=== PATIENT | male | born 1990 | race Caucasian/White ===

== ENCOUNTER 2021-06-01 07:01 | Outpatient (REF) | payer BC, SELFPAY ==
[2021-06-01 11:09] LABS: MANUAL DIFF FLAG NO
[2021-06-01 11:26] LABS: Appearance Urine CLEAR; Color Urine YELLOW; Glucose Urine UA NEG (NEG); Leukocyte Esterase Urine NEG (NEG); Nitrite Urine NEG (NEG); PH 5.5 (5.0-8.0); Specific Gravity - Urine >= 1.030 (1.005-1.025); Urine Blood NEG (NEG); Urine Ketones NEG (NEG); Urine Protein NEG (NEG-TRACE)
[2021-06-01 11:29] LABS: Basophils Percent Auto 0.3 % (0-2); Eosinophils Absolute Auto 0.1 X10*3/uL (0.0-0.4); Eosinophils Percent Auto 1.1 % (0-4); Hematocrit 47.9 % (42.0-52.0); Hemoglobin 16.4 g/dl (14.0-18.0); Imm Gran Abs Auto 0.02 X10*3/uL (0.00-0.03); Imm Gran Pct Auto 0.3 % (0.0-0.4); Lymphocytes Absolute Auto 3.2 X10*3/uL (1.2-4.9); Lymphocytes Percent Auto 42.5 % (20-40); Mean Corpuscular HGB Conc 34.2 g/dl (31.0-36.0); Mean Corpuscular Volume 87.7 fL (80.0-98.0); Mean Platelet Volume 9.6 fL (9.4-12.4); Monocytes Absolute Auto 0.6 X10*3/uL (0.1-1.2); Monocytes Percent Auto 8.6 % (2-11); Neutrophils Absolute Auto 3.5 x10*3/uL (2.0-8.3); Neutrophils Percent Auto 47.2 % (45-73); Platelet Count 254 X10*3/uL (160-400); Red Blood Count 5.46 X10*6/uL (4.60-5.80); Red Cell Distribution Width 12.6 % (11.0-16.0); White Blood Count 7.4 X10*3/uL (4.8-10.8)
[2021-06-01 11:40] LABS: Alanine Aminotransferase 34 U/L (0-40); Albumin Level 4.7 g/dL (3.5-5.0); Alkaline Phosphatase 65 U/L (39-117); Anion Gap 14 (12-20); Aspartate Amino Transferase 20 U/L (5-37); Bilirubin Total 2.1 mg/dL (0.0-1.0); Blood Urea Nitrogen 13 mg/dL (9-16); Calcium 9.6 mg/dL (8.4-10.2); Carbon Dioxide 26 mmol/L (22-29); Chloride 105 mmol/L (96-108); Cholesterol 177 mg/dL; Estimated Glomerular Filt Rate > 60; Glucose Fasting 100 mg/dL (60-99); HDL Cholesterol 39 mg/dL; LDL Cholesterol Calculated 122 mg/dl; Potassium 4.5 mmol/L (3.3-5.1); Sodium 140 mmol/L (135-145); Total Protein 7.4 g/dL (6.5-8.0); Triglycerides 81 mg/dL
[2021-06-01 12:02] LABS: TSH reflex Free T4 1.77 uIU/mL (0.32-4.0)
== END 2021-06-01 07:02 | disposition home or self-care (01) ==
LOC: HO.HMGCLDS 07:01
PROVIDERS: Visit Provider Nurse Practitioner Family
DX: Z00.00 Encounter for general adult medical examination without abnormal findings (principal)
CPT/HCPCS: 36415; 80053; 80061; 81003; 84443; 85025

== ENCOUNTER 2021-07-02 06:30 | Outpatient (REF) | payer BC, SELFPAY ==
[2021-07-02 12:01] LABS: Alanine Aminotransferase 40 U/L (0-40); Albumin Level 4.5 g/dL (3.5-5.0); Alkaline Phosphatase 62 U/L (39-117); Aspartate Amino Transferase 23 U/L (5-37); Bilirubin Direct 0.8 mg/dL (0.0-0.5); Bilirubin Total 2.6 mg/dL (0.0-1.0); Total Protein 7.1 g/dL (6.5-8.0)
== END 2021-07-02 06:31 | disposition home or self-care (01) ==
LOC: HO.HMGCLDS 06:30
PROVIDERS: Visit Provider Nurse Practitioner Family
DX: R17 Unspecified jaundice (principal)
CPT/HCPCS: 36415; 80076

== ENCOUNTER 2021-09-24 09:30 | Outpatient (REF) | payer BC, SELFPAY ==
[2021-09-24 14:02] LABS: Gamma Glutamyl Transpeptidase 31 U/L (11-51)
[2021-09-24 14:23] LABS: Ferritin 151 ng/mL (20-250)
[2021-09-25 08:06] LABS: HBS Num1 83.56 mIU/mL (0-7.99); HBc Num1 0.11 S/CO (0.00-0.79); HBsAGNum1 0.21 S/CO (0.00-0.99); HIV AB/AG Nonreactive (Nonreactive); Hepatitis A Antibody IgM 0.17 Index (0-0.79); Hepatitis B Core Antibody Nonreactive (Nonreactive); Hepatitis B Surface Antigen Negative (Negative); ~HepC Num1 0.07 S/CO (0.00-0.79); ~Hepatitis A Antibody IgM Nonreactive (Nonreactive); ~Hepatitis B Surface Antibody REACTIVE (Nonreactive); ~Hepatitis C Antibody Nonreactive (Nonreactive)
[2021-09-28 13:57] LABS: Alpha Fetoprotein 3.7 ng/mL (<6.1)
[2021-09-28 14:53] LABS: Anti Nuclear Antibody Screen NEGATIVE (NEGATIVE)
[2021-09-30 16:07] LABS: Mitochondrial Antibodies NEGATIVE (NEGATIVE)
[2021-09-30 23:47] LABS: Smooth Muscle Antibody <20 U (<20)
== END 2021-09-24 09:31 | disposition home or self-care (01) ==
LOC: HO.HMGCLDS 09:30
PROVIDERS: PCP Nurse Practitioner Family; Visit Provider Nurse Practitioner
DX: Z11.4 Encounter for screening for human immunodeficiency virus [HIV] (principal); R17 Unspecified jaundice
CPT/HCPCS: 36415; 82105; 82728; 82977; 86015; 86038; 86039; 86255; 86256; 86704; 86706; 86709; 86803; 87340; 87389

== ENCOUNTER 2021-10-12 09:48 | Outpatient (REF) | payer BC, SELFPAY ==
--- NOTE | ~2021-10-12 | US_ITS ---
EXAMINATION: US COMPLETE ABDOMEN WITH LIVER ELASTOGRAPHY CLINICAL INFORMATION: Unspecified jaundice. COMPARISON: Abdominal ultrasound done on 11/17/2010. TECHNIQUE: Real-time imaging of the abdominal viscera. Noninvasive ultrasound liver fibrosis assessment is performed using Leisa ElastPQ point quantification shear wave elastography (2D-SWE) with a C5-2 MHz transducer. Multiple elastography samples are obtained. FINDINGS: PANCREAS: Normal. The visualized pancreatic head and body are normal in appearance. The remainder of the pancreas is obscured from visualization by the overlying bowel gas. ABDOMINAL AORTA: The proximal, middle, and distal aortic segments are normal in caliber. INFERIOR VENA CAVA: Visualized portions are normal. LIVER: Normal. The liver demonstrates normal size, contour and echogenicity. No focal lesion or intrahepatic biliary duct dilatation. The right lobe measures 15.6 cm in length. The left lobe measures 9.2 cm in length. Portal flow is towards the liver (hepatopetal). Shear wave liver elastography median stiffness is 1.66 m/s (reference: normal median stiffness is 1.3 m/s or less). IQR/median stiffness to assess sampling precision is 0.04 (reference: good quality data set is IQR/median stiffness of 0.15 or less). GALLBLADDER: Solitary 0.6 cm nonmobile oval-shaped echogenic focus is noted, most consistent with a polyp, unchanged since 11/17/2010. There is another smaller similar appearing focus is also noted, appear new since prior study dated 11/17/2010. The gallbladder is physiologically distended without evidence of stones, wall thickening or pericholecystic fluid. COMMON BILE DUCT: Normal in caliber measuring 0.3 cm in diameter. RIGHT KIDNEY: Mild fullness is present of the renal pelvis. No renal calculi or focal parenchymal lesions. The kidney measures 12.0 cm in maximum dimension. LEFT KIDNEY: Mild fullness is present of the renal pelvis. No renal calculi or focal parenchymal lesions. The kidney measures 12.7 cm in maximum dimension. SPLEEN: Normal. The spleen measures 12.2 cm in maximum dimension. FREE FLUID: None. US/US abdomen comp w elastography IMPRESSION: 1. Subcentimeter gallbladder polyps. The dominant follicle measuring 0.6 cm appear stable since 11/17/2010. 2. Otherwise sonographically unremarkable abdominal ultrasound. 3. Liver elastography: In the absence of other known clinical signs, measurements rule out compensated advanced chronic liver disease. If there are known clinical signs, further testing may be needed for confirmation. REFERENCE: Society of Radiologists in Ultrasound Liver Stiffness Thresholds (2020): LIVER STIFFNESS THRESHOLDS: *Liver Stiffness equal or less than 1.3 m/s: High probability of being normal. *Liver Stiffness less than 1.7 m/s: In the absence of other known clinical signs, rules out compensated advanced chronic liver disease. *Liver Stiffness 1.7-2.1 m/s: Suggestive of compensated advanced chronic liver disease but need further test for confirmation. *Liver Stiffness over 2.1 m/s: Rules in compensated advanced chronic liver disease. *Liver Stiffness over 2.4 m/s: Suggestive of clinically significant portal hypertension. QUALITY OF DATA SET: *IQR/Median value equal or less than 0.15 implies a quality data set. *IQR/Median value over 0.15 implies a poor quality data set. SIGNIFICANT CHANGE FROM PRIOR EXAM: Significant change if liver stiffness measurement is 10% or greater from prior exam. OTHER CONSIDERATIONS: The stage of liver fibrosis may be overestimated in the setting of acute hepatitis, liver inflammation, elevated liver function tests, hepatic vascular congestion, obstructive cholestasis, non-fasting state, and infiltrative diseases such as amyloidosis and lymphoma. In some patients with NAFLD, the liver stiffness thresholds for compensated advanced chronic liver disease may be lower. In causes other than viral hepatitis and NAFLD, liver stiffness thresholds are not well established.
== END 2021-10-12 09:49 | disposition home or self-care (01) ==
LOC: HO.US 09:48
PROVIDERS: PCP Nurse Practitioner Family; Visit Provider Nurse Practitioner
DX: R17 Unspecified jaundice (principal)
CPT/HCPCS: 76705; 76981

== ENCOUNTER → 2022-09-10 14:21 | Outpatient (AMB) | payer BC, SELFPAY ==
--- NOTE | 2022-09-10 14:25 | A.OFFVIS_ITS ---
Intake Vital Signs 09/10/22 14:26 Height 6 ft Weight 207 lb 3.752 oz BMI 28.1 BP 113/72 Blood Pressure Location Lt brachial Position Sitting Pulse 80 Intake Visit Reasons: Follow up GERD Intake Note: Patient presents to in office visit today in follow up of GERD. CC: Patient report LUQ abdominal pain and GERD depending on what he eats. Denies other GI symptoms today. Telephone Service Representative Required: No Accompanied by: Self / Same As Patient Allergies Penicillins [PENICILLINS] Allergy (Unknown, Verified 09/10/22 14:29) UNKNOWN HPI Follow up GERD HPI Details Assessment & Plan (1) LINDSEY (nonalcoholic steatohepatitis): ?Comment: BASELINE Laboratory Tests ?06/01/21 Estimated GFR > 60 Total Bilirubin 2.6 H Direct Bilirubin 0.8 H GGT 31 AST 23 ALT 40 Alkaline Phosphatase 62 ?09/24/21 Alpha Fetoprotein 3.7 LEISA Screen NEGATIVE Anti-Mitochondrial Ab NEGATIVE Anti-Smooth Muscle Ab <20 Hepatitis A IgM Ab Nonreactive Hep Bs Antigen Negative Hep Bs Antibody REACTIVE Hep B Core Total Ab Nonreactive Hepatitis C Ab (EIA) Nonreactive HIV 1&2 Ab/P24 Ag 4thGn Nonreactive ULTRASOUND OF THE ABDOMEN WITH ELASTOGRAPHY? 10/13/21? (F0-F1) ULTRASOUND OF THE ABDOMEN WITH ELASTOGRAPHY? 10/13/21? (F0-F1) Shear wave liver elastography median stiffness is 1.66 m/s (reference: normal median stiffness is 1.3 m/s or less).Liver Stiffness? less than 1.7 m/s:? In the absence of other known clinical signs, rules out compensated advanced chronic liver disease. IMPRESSION: 1. Subcentimeter gallbladder polyps. The dominant follicle measuring 0.6 cm appear stable since 11/17/2010. 2. Otherwise sonographically unremarkable abdominal ultrasound. ? 3. Liver elastography:? In the absence of other known clinical signs, measurements rule out compensated advanced chronic liver disease.? If there are known clinical signs, further testing may be needed for confirmation. ?Code(s): K75.81 - Nonalcoholic steatohepatitis (LINDSEY) ?Plan: I go over the test results and, most likely, the elevated liver enzymes are fatty liver or LINDSEY.? He tells me that his mother has fatty liver and I explained that this is a genetic trait where the body will store fat in the liver and this could interfere with the liver function.? It is important that she control his weight, control his blood sugar and avoid alcohol to try to decrease his chances of developing cirrhosis or liver cancer through his life time.? He is agreeable to seeing me every 6 months for monitoring. He is doing well on the pepcid qhs. The left upper stomach pain is somewhat i mproved, but it has not been long enough for him to know for sure. He has trouble with fatty foods, jigar with fatty hamburger, he will have N/V. This could be a mild pancreatic insufficiency. Could consider HIDA or Creon going forward; but for now watch and wait.? He does have some gallbladder polyps in this could be interfering with the excretion of enzymes from the gallbladder. I instruct him on how to sign out for the patient portal and he can contact me if he has any worsening of the pain or other symptoms.? He is agreeable to six-month follow-up. (2) GERD (gastroesophageal reflux disease): ?Code(s): K21.9 - Gastro-esophageal reflux disease without esophagitis (3) Left upper quadrant abdominal pain: ?Code(s): R10.12 - Left upper quadrant pain (4) Elevated bilirubin: ?Code(s): R17 - Unspecified jaundice No labs for LINDSEY since 05/2021. TODAY'S VISIT He is noting having pain in the LUQ when he eats greasier foods when he is on the run at work. (this is consistent with his past presentation) The famotidine still seems to settle this down well. I will increase dosing to bid so that he can have some to take with him to work. Long education about the fact that the body does not always digest fats well. We discussed the possibility that this is a result of gas trapping any says that this could be since he does seem to feel that greasy food give him more gas. We also briefly discussed the possibility of a digestive enzyme however the multiple time a day dosing could be a barrier for him. He is agreeable to LINDSEY survey. He questions if his GB is a problem, no past hx of gallstones but US will tell. 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 Current occupational exposures/hazards: No Review of Systems Const Denies fatigue, Denies fever(s), Denies night sweats, Denies poor appetite and Denies weight loss ENT Reports Normal hearing present, Denies dental pain, Denies dysphagia, Denies hearing loss, Denies mouth pain, Denies odynophagia, Denies throat swelling, Denies tongue swelling and Reports other (Dentition adequate) Card Reports no additional complaints Resp Reports no additional complaints GI Reports abdominal pain, Denies melena, Denies bloating, Denies hematochezia, Denies constipation, Denies GI cramping, Denies dysphagia, Denies excessive flatus, Denies early satiety, Reports heartburn, Denies diarrhea, Denies nausea, Denies odynophagia, Denies vomiting and Denies hematemesis Skin/Breast Denies pruritus, Denies lesions, Denies rash and Denies jaundice Neuro Reports Normal hearing present and Denies Abnormal speech present Endo Denies fatigue Aller/Immun Denies throat swelling and Denies tongue swelling Physical Exam Vital Signs: Last Vital Signs Pulse 80 09/10/22 14:26 BP 113/72 09/10/22 14:26 BMI result Body Mass Index 28.1 Const General: cooperative, no acute distress, well developed and well groomed Nutritional Appearance: average body habitus and well nourished Orientation/consciousness: oriented to person, oriented to place and oriented to time Limitations: No language barrier HEENT Head: Yes normocephalic and Yes atraumatic Eyes General: appearance normal, both eyes and all related structures Pupils: Equal, round and reactive pupils present Neck Neck: Yes normal visual inspection and Yes no lymphadenopathy Thyroid: Thyroid normal Resp Effort & Inspection: normal respiratory effort and able to speak in complete sentences Auscultation: clear to auscultation bilaterally Cardio Rate: regular rate Rhythm: regular rhythm Heart sounds: Normal, physiologic split S2 sound present Peripheral pulses: radial pulses present and posterior tibial pulses present GI Inspection: No distended and No Abdominal panniculus present Palpation (GI): Soft to palpation, nontender, no guarding, not rigid and No hepatosplenomegaly present Percussion: Yes normal to percussion Auscultation: normal bowel sounds Rectal Exam - Male: Yes deferred Skin General skin exam: no rashes or lesions noted, turgor normal, skin not dry, no jaundice, No spider nevi and no striae Rashes: no rashes Nails: normal Neuro General: oriented to person, oriented to place and oriented to time Cranial nerves: Yes Equal, round and reactive pupils present and Yes Normal hearing present Speech: No Abnormal speech present Extrem General: Yes normal to inspection, No clubbing, No cyanosis and No edema Psych Appearance: grossly normal and well kempt Mental Status: mental status grossly normal Speech and movement: Normal speech and movement present Affect: normal affect Attitude: cooperative Thought process: Normal thought process present and not confabulating Thought content: Normal thought content present Insight: Limited insight present (Psych) Judgement: Limited judgement present (Psych) Assessment & Plan Assessment & Plan (1) LINDSEY (nonalcoholic steatohepatitis): Comment: BASELINE Laboratory Tests 06/01/21 Estimated GFR > 60 Total Bilirubin 2.6 H Direct Bilirubin 0.8 H GGT 31 AST 23 ALT 40 Alkaline Phosphatase 62 09/24/21 Alpha Fetoprotein 3.7 LEISA Screen NEGATIVE Anti-Mitochondrial Ab NEGATIVE Anti-Smooth Muscle Ab <20 Hepatitis A IgM Ab Nonreactive Hep Bs Antigen Negative Hep Bs Antibody REACTIVE Hep B Core Total Ab Nonreactive Hepatitis C Ab (EIA) Nonreactive HIV 1&2 Ab/P24 Ag 4thGn Nonreactive ULTRASOUND OF THE ABDOMEN WITH ELASTOGRAPHY 10/13/21 (F0-F1) ULTRASOUND OF THE ABDOMEN WITH ELASTOGRAPHY 10/13/21 (F0-F1) Shear wave liver elastography median stiffness is 1.66 m/s (reference: normal median stiffness is 1.3 m/s or less).Liver Stiffness? less than 1.7 m/s:? In the absence of other known clinical signs, rules out compensated advanced chronic liver disease. IMPRESSION: 1. Subcentimeter gallbladder polyps. The dominant follicle measuring 0.6 cm appear stable since 11/17/2010. 2. Otherwise sonographically unremarkable abdominal ultrasound. ? 3. Liver elastography:? In the absence of other known clinical signs, measurements rule out compensated advanced chronic liver disease.? If there are known clinical signs, further testing may be needed for confirmation. Code(s): K75.81 - Nonalcoholic steatohepatitis (LINDSEY) Plan: He is noting having pain in the LUQ when he eats greasier foods when he is on the run at work. (this is consistent with his past presentation) The famotidine still seems to settle this down well. I will increase dosing to bid so that he can have some to take with him to work. Long education about the fact that the body does not always digest fats well. We discussed the possibility that this is a result of gas trapping any says that this could be since he does seem to feel that greasy food give him more gas. We also briefly discussed the possibility of a digestive enzyme however the multiple time a day dosing could be a barrier for him. He is agreeable to LINDSEY survey. He questions if his GB is a problem, no past hx of gallstones but US will tell. I will see him after th e US> ROV after US> (2) GERD (gastroesophageal reflux disease): Code(s): K21.9 - Gastro-esophageal reflux disease without esophagitis (3) Elevated bilirubin: Code(s): R17 - Unspecified jaundice (4) Left upper quadrant abdominal pain: Code(s): R10.12 - Left upper quadrant pain Orders: Orders Alpha Fetoprotein Today K75.81 - Nonalcoholic steatohepatitis (LINDSEY) Comprehensive Met. Panel Today K75.81 - Nonalcoholic steatohepatitis (LINDSEY) Complete Blood Count Auto Diff Today K75.81 - Nonalcoholic steatohepatitis (LINDSEY) US abdomen comp w elastography Today K75.81 - Nonalcoholic steatohepatitis (LINDSEY) Medications: Changed From famotidine 40 mg PO BEDTIME 30 tabs 0RF K21.9 - Gastro-esophageal reflux disease without esophagitis To famotidine 40 mg PO BID 60 tabs 6RF K21.9 - Gastro-esophageal reflux disease without esophagitis Coding Level of Care Code Est Pt Level 3 (63514) Diagnoses LINDSEY (nonalcoholic steatohepatitis) K75.81 GERD (gastroesophageal reflux disease) K21.9 Elevated bilirubin R17 Left upper quadrant abdominal pain R10.12
[2022-09-10 14:26] VITALS: BP 113/72; PULSE 80; BMI 28.1
== END ==
PROVIDERS: PCP Nurse Practitioner Family; Visit Provider Nurse Practitioner
DX: K75.81 Nonalcoholic steatohepatitis (NASH) (principal); K21.9 Gastro-esophageal reflux disease without esophagitis; R10.12 Left upper quadrant pain; R17 Unspecified jaundice
CPT/HCPCS: 99213

== ENCOUNTER → 2022-09-10 14:21 | Outpatient (BNVA) | payer BC, SELFPAY | PROVIDERS: PCP Nurse Practitioner Family; Visit Provider Nurse Practitioner ==

== ENCOUNTER 2022-09-10 15:00 | Outpatient (REF) | payer BC, SELFPAY ==
[2022-09-10 16:15] LABS: MANUAL DIFF FLAG NO
[2022-09-10 16:30] LABS: Basophils Percent Auto 0.2 % (0-2); Eosinophils Absolute Auto 0.1 X10*3/uL (0.0-0.4); Eosinophils Percent Auto 0.8 % (0-4); Hematocrit 44.2 % (42.0-52.0); Hemoglobin 15.1 g/dl (14.0-18.0); Imm Gran Abs Auto 0.02 X10*3/uL (0.00-0.03); Imm Gran Pct Auto 0.2 % (0.0-0.4); Lymphocytes Percent Auto 35.4 % (20-40); Mean Corpuscular HGB Conc 34.2 g/dl (31.0-36.0); Mean Corpuscular Hemoglobin 29.5 pg (27.0-33.0); Mean Corpuscular Volume 86.3 fL (80.0-98.0); Mean Platelet Volume 9.1 fL (9.4-12.4); Monocytes Absolute Auto 0.7 X10*3/uL (0.1-1.2); Neutrophils Absolute Auto 4.6 x10*3/uL (2.0-8.3); Neutrophils Percent Auto 55.4 % (45-73); Platelet Count 258 X10*3/uL (160-400); Red Blood Count 5.12 X10*6/uL (4.60-5.80); Red Cell Distribution Width 11.9 % (11.0-16.0); White Blood Count 8.4 X10*3/uL (4.8-10.8)
[2022-09-10 17:17] LABS: Alanine Aminotransferase 31 U/L (0-40); Albumin Level 4.6 g/dL (3.5-5.0); Alkaline Phosphatase 55 U/L (39-117); Anion Gap 14 (12-20); Aspartate Amino Transferase 22 U/L (5-37); Bilirubin Total 2.9 mg/dL (0.0-1.0); Blood Urea Nitrogen 15 mg/dL (9-16); Carbon Dioxide 30 mmol/L (22-29); Chloride 101 mmol/L (96-108); Estimated Glomerular Filt Rate > 60; Glucose Random 75 mg/dL (60-115); Potassium 3.9 mmol/L (3.3-5.1); Sodium 141 mmol/L (135-145); Total Protein 7.6 g/dL (6.5-8.0)
[2022-09-14 13:39] LABS: Alpha Fetoprotein 2.8 ng/mL (<6.1)
== END 2022-09-10 15:01 | disposition home or self-care (01) ==
LOC: HO.HMGCLDS 15:00
PROVIDERS: PCP Nurse Practitioner Family; Visit Provider Nurse Practitioner
DX: K75.81 Nonalcoholic steatohepatitis (NASH) (principal)
CPT/HCPCS: 36415; 80053; 82105; 85025

== ENCOUNTER 2022-10-07 09:00 | Outpatient (REF) | payer BC, SELFPAY ==
--- NOTE | ~2022-10-07 | US_ITS ---
EXAMINATION: US COMPLETE ABDOMEN WITH LIVER ELASTOGRAPHY CLINICAL INFORMATION: Nonalcoholic steatohepatitis. COMPARISON: Abdominal ultrasound dated 10/12/2021. TECHNIQUE: Real-time imaging of the abdominal viscera. Noninvasive ultrasound liver fibrosis assessment is performed using Leisa ElastPQ point quantification shear wave elastography (2D-SWE) with a C5-2 MHz transducer. Multiple elastography samples are obtained. FINDINGS: PANCREAS: Normal. The visualized pancreatic head and body are normal in appearance. The remainder of the pancreas is obscured from visualization by the overlying bowel gas. ABDOMINAL AORTA: Largely obscured by overlapping bowel gas. INFERIOR VENA CAVA: Visualized portions are normal. LIVER: The liver demonstrates normal size, contour and is generally increased echogenicity. No focal lesion or intrahepatic biliary duct dilatation. The right lobe measures 13.9 cm in length. The left lobe measures 10.6 cm in length. Portal flow is towards the liver (hepatopetal). Shear wave liver elastography median stiffness is 1.6 m/s (reference: normal median stiffness is 1.3 m/s or less). IQR/median stiffness to assess sampling precision is 0.24 (reference: good quality data set is IQR/median stiffness of 0.15 or less). GALLBLADDER: There are tiny polyps, likely cholesterol polyps. The largest of these measure approximately 2 mm. The gallbladder is physiologically distended without evidence of stones, sludge, polyps, wall thickening or pericholecystic fluid. COMMON BILE DUCT: Normal in caliber measuring 0.2 cm in diameter. RIGHT KIDNEY: Normal. No hydronephrosis. No renal calculi or focal parenchymal lesions. The kidney measures 10.7 cm in maximum dimension. LEFT KIDNEY: Normal. No hydronephrosis. No renal calculi or focal parenchymal lesions. The kidney measures 12.2 cm in maximum dimension. SPLEEN: Normal. The spleen measures 11.4 cm in maximum dimension. FREE FLUID: None. US/US abdomen comp w elastography IMPRESSION: 1. There is generalized increase in hepatic echotexture, consistent with fatty infiltration or hepatocellular disease. Please correlate clinically. No focal hepatic mass or intrahepatic biliary dilatation is seen. 2. Liver elastography: Although measurements appear to rule out compensated advanced chronic liver disease, there is statistical variability of the sampling which decreases accuracy. 3. Tiny gallbladder polyps are incidentally noted, likely cholesterol polyps. REFERENCE: Society of Radiologists in Ultrasound Liver Stiffness Thresholds (2020): LIVER STIFFNESS THRESHOLDS: *Liver Stiffness equal or less than 1.3 m/s: High probability of being normal. *Liver Stiffness less than 1.7 m/s: In the absence of other known clinical signs, rules out compensated advanced chronic liver disease. *Liver Stiffness 1.7-2.1 m/s: Suggestive of compensated advanced chronic liver disease but need further test for confirmation. *Liver Stiffness over 2.1 m/s: Rules in compensated advanced chronic liver disease. *Liver Stiffness over 2.4 m/s: Suggestive of clinically significant portal hypertension. QUALITY OF DATA SET: *IQR/Median value equal or less than 0.15 implies a quality data set. *IQR/Median value over 0.15 implies a poor quality data set. SIGNIFICANT CHANGE FROM PRIOR EXAM: Significant change if liver stiffness measurement is 10% or greater from prior exam. OTHER CONSIDERATIONS: The stage of liver fibrosis may be overestimated in the setting of acute hepatitis, liver inflammation, elevated liver function tests, hepatic vascular congestion, obstructive cholestasis, non-fasting state, and infiltrative diseases such as amyloidosis and lymphoma. In some patients with NAFLD, the liver stiffness thresholds for compensated advanced chronic liver disease may be lower. In causes other than viral hepatitis and NAFLD, liver stiffness thresholds are not well established.
== END 2022-10-07 09:01 | disposition home or self-care (01) ==
LOC: HO.US 09:00
PROVIDERS: PCP Nurse Practitioner Family; Visit Provider Nurse Practitioner
DX: K75.81 Nonalcoholic steatohepatitis (NASH) (principal)
CPT/HCPCS: 76705; 76981

== ENCOUNTER 2022-12-21 14:14 | Outpatient (AMB) | payer BC, SELFPAY ==
--- NOTE | 2022-12-21 14:15 | A.OFFVIS_ITS ---
Intake Vital Signs 12/21/22 14:17 Height 6 ft Weight 207 lb 3.752 oz BMI 28.1 BP 125/68 Blood Pressure Location Lt brachial Position Sitting Pulse 79 Intake Visit Reasons: follow up after ultra sound Intake Note: Edwin presents in the office as a follow up US. CC: Pains in his left side and here for results the the US. He has the pains every day so he is not sure if it is maybe his gall bladder. Allergies Penicillins [PENICILLINS] Allergy (Unknown, Verified 12/21/22 14:17) UNKNOWN HPI follow up after ultra sound HPI Details Assessment & Plan (1) LINDSEY (nonalcoholic steatohepatitis): Comment: BASELINE Laboratory Tests 06/01/21 Estimated GFR > 60 Total Bilirubin 2.6 H Direct Bilirubin 0.8 H GGT 31 AST 23 ALT 40 Alkaline Phosphatase 62 09/24/21 Alpha Fetoprotein 3.7 LEISA Screen NEGATIVE Anti-Mitochondrial Ab NEGATIVE Anti-Smooth Muscle Ab <20 Hepatitis A IgM Ab Nonreactive Hep Bs Antigen Negative Hep Bs Antibody REACTIVE Hep B Core Total Ab Nonreactive Hepatitis C Ab (EIA) Nonreactive HIV 1&2 Ab/P24 Ag 4thGn Nonreactive ULTRASOUND OF THE ABDOMEN WITH ELASTOGRAPHY 10/13/21 (F0-F1) ULTRASOUND OF THE ABDOMEN WITH ELASTOGRAPHY 10/13/21 (F0-F1) Shear wave liver elastography median stiffness is 1.66 m/s (reference: normal median stiffness is 1.3 m/s or less).Liver Stiffness? less than 1.7 m/s:? In the absence of other known clinical signs, rules out compensated advanced chronic liver disease. IMPRESSION: 1. Subcentimeter gallbladder polyps. The dominant follicle measuring 0.6 cm appear stable since 11/17/2010. 2. Otherwise sonographically unremarkabl e abdominal ultrasound. ? 3. Liver elastography:? In the absence o f other known clinical signs, measurements rule out compensated advanced chronic liver disease.? If there are known clinical signs, further testing may be needed for confirmation. Code(s): K75.81 - Nonalcoholic steatohepatitis (LINDSEY) Plan: He is noting having pain in the LUQ when he eats greasier foods when he is on the run at work. (this is consistent with his past presentation) The famotidine still seems to settle this down well. I will increase dosing to bid so that he can have some to take with him to work. Long education about the fact that the body does not always digest fats well. We discussed the possibility that this is a result of gas trapping any says that this could be since he does seem to feel that greasy food give him more gas. We also briefly discussed the possibility of a digestive enzyme however the multiple time a day dosing could be a barrier for him. He is agreeable to LINDSEY survey. He questions if his GB is a problem, no past hx of gallstones but US will tell. I will see him after th e US> ROV after US> (2) GERD (gastroesophageal reflux diseas e): Code(s): K21.9 - Gastro-esophageal reflux disease without esophagitis (3) Elevated bilirubin: Code(s): R17 - Unspecified jaundice (4) Left upper quadrant abdominal pain: Code(s): R10.12 - Left upper quadrant pain Orders: Orders Alpha Fetoprotein Today K75.81 - Nonalcoho lic steatohepatiti s (LINDSEY) Comprehensive Met. Panel Today K75.81 - Nonalcoho lic steatohepatiti s (LINDSEY) Complete Blood Cou nt Auto Diff Today K75.81 - Nonalcoho lic steatohepatiti s (LINDSEY) US abdomen comp w elastography Today K75.81 - Nonalcoho lic steatohepatiti s (LINDSEY) Medications: Changed From famotidine 40 mg PO BEDTIME 30 tabs 0RF K21.9 - Gastro-eso phageal reflux dis ease without esoph agitis To famotidine 40 mg PO BID 60 t abs 6RF K21.9 - Gastro-eso phageal reflux dis ease without esoph agitis LABS: Laboratory Tests 07/02/21 09/10/22 09/10/22 06:37 15:21 15:21 WBC 8.4 Hgb 15.1 Hct 44.2 Plt Count 258 Estimated GFR > 60 Total Bilirubin 2.9 H Direct Bilirubin 0.8 H AST 22 ALT 31 Alkaline Phosphata se 55 Alpha Fetoprotein 2.8 ULTRASOUND OF THE ABDOMEN WITH ELASTOGRAPHY (F-0) FINDINGS: PANCREAS: Normal. The visualized pancreatic head and body are normal in appearance. The remainder of the pancreas is obscured from visualization by the overlying bowel gas. ABDOMINAL AORTA: Largely obscured by overlapping bowel gas. INFERIOR VENA CAVA: Visualized portions are normal. LIVER: The liver demonstrates normal size, contour and is generally increased echogenicity. No focal lesion or intrahepatic biliary duct dilatation. The right lobe measures 13.9 cm in length. The left lobe measures 10.6 cm in length. Portal flow is towards the liver (hepatopetal). Shear wave liver elastography median stiffness is 1.6 m/s (reference: normal median stiffness is 1.3 m/s or less). IQR/median stiffness to assess sampling precision is 0.24 (reference: good quality data set is IQR/median stiffness of 0.15 or less). GALLBLADDER: There are tiny polyps, likely cholesterol polyps. The largest of these measure approximately 2 mm. The gallbladder is physiologically distended without evidence of stones, sludge, polyps, wall thickening or pericholecystic fluid. COMMON BILE DUCT: Normal in caliber measuring 0.2 cm in diameter. RIGHT KIDNEY: Normal. No hydronephrosis. No renal calculi or focal parenchymal lesions. The kidney measures 10.7 cm in maximum dimension. LEFT KIDNEY: Normal. No hydronephrosis. No renal calculi or focal parenchymal lesions. The kidney measures 12.2 cm in maximum dimension. SPLEEN: Normal. The spleen measures 11.4 cm in maximum dimension. FREE FLUID: None. US/US abdomen comp w elastography IMPRESSION: 1. There is generalized increase in hepa tic echotexture, consistent with fatty infiltration or hepatocellular disease. Please correlate clinically. No focal hepatic mass or intrahepatic biliary dilatation is seen. 2. Liver elastography: Although measure ments appear to rule out compensated advanced chronic liver disease, there is statistical variability of the sampling which decreases accuracy. 3. Tiny gallbladder polyps are incidenta lly noted, likely cholesterol polyps. TODAY'S VISIT He still has pain in the LUQ in a very discreet spot, always sore and he has to put a pillow over it to sleep. This is greatly worse with eating greasy foods but the nausea and increase in the pain and the nausea will happen a few hours later after eating. When he vomits there is only grease and no food. The pain at times will wrap around to the back on the left side. US does not show gallstones. It does show a lot of gas and much of the pancreas is obscured. Next step, HIDA scan, pancreatic enzymes and try simethicone. Could be EPI or atypical manifestation of GB problems. He continues on famotidine. ROV after HIDA scan. 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 Current occupational exposures/hazards: No Review of Systems Const Denies fatigue, Denies fever(s), Denies night sweats, Denies poor appetite and Denies weight loss ENT Reports Normal hearing present, Denies dental pain, Denies dysphagia, Denies hearing loss, Denies mouth pain, Denies odynophagia, Denies throat swelling, Denies tongue swelling and Reports other (Dentition adequate) Card Reports no additional complaints Resp Reports no additional complaints GI Reports abdominal pain, Denies melena, Reports bloating, Denies hematochezia, Denies constipation, Denies GI cramping, Denies dysphagia, Denies excessive flatus, Denies early satiety, Denies heartburn, Denies diarrhea, Reports nausea, Denies odynophagia, Reports vomiting and Denies hematemesis Musc Reports back pain Skin/Breast Denies pruritus, Denies lesions, Denies rash and Denies jaundice Neuro Reports Normal hearing present and Denies Abnormal speech present Endo Denies fatigue Aller/Immun Denies throat swelling and Denies tongue swelling Physical Exam Vital Signs: Last Vital Signs Pulse 79 12/21/22 14:17 BP 125/68 12/21/22 14:17 BMI result Body Mass Index 28.1 Const General: cooperative, no acute distress, well developed and well groomed Nutritional Appearance: average body habitus and well nourished Orientation/consciousness: oriented to person, oriented to place and oriented to time Limitations: No language barrier HEENT Head: Yes normocephalic and Yes atraumatic Eyes General: appearance normal, both eyes and all related structures Pupils: Equal, round and reactive pupils present Neck Neck: Yes normal visual inspection and Yes no lymphadenopathy Thyroid: Thyroid normal Resp Effort & Inspection: normal respiratory effort and able to speak in complete sentences Auscultation: clear to auscultation bilaterally Cardio Rate: regular rate Rhythm: regular rhythm Heart sounds: Normal, physiologic split S2 sound present Peripheral pulses: radial pulses present and posterior tibial pulses present GI Inspection: No distended and No Abdominal panniculus present Palpation (GI): Soft to palpation, Tenderness to palpation present (GI) in the LUQ, no guarding, not rigid and No hepatosplenomegaly present Percussion: Yes normal to percussion Auscultation: normal bowel sounds Rectal Exam - Male: Yes deferred Skin General skin exam: no rashes or lesions noted, turgor normal, skin not dry, no jaundice, No spider nevi and no striae Rashes: no rashes Nails: normal Neuro General: oriented to person, oriented to place and oriented to time Cranial nerves: Yes Equal, round and reactive pupils present and Yes Normal hearing present Speech: No Abnormal speech present Extrem General: Yes normal to inspection, No clubbing, No cyanosis and No edema Psych Appearance: grossly normal and well kempt Mental Status: mental status grossly normal Speech and movement: Normal speech and movement present Affect: normal affect Attitude: cooperative Thought process: Normal thought process present and not confabulating Thought content: Normal thought content present Insight: Fair insight present (Psych) Judgement: Fair judgement present (Psych) Assessment & Plan Assessment & Plan (1) Left upper quadrant abdominal pain: Code(s): R10.12 - Left upper quadrant pain (2) Elevated bilirubin: Code(s): R17 - Unspecified jaundice Plan He still has pain in the LUQ in a very discreet spot, always sore and he has to put a pillow over it to sleep. This is greatly worse with eating greasy foods but the nausea and increase in the pain and the nausea will happen a few hours later after eating. When he vomits there is only grease and no food. The pain at times will wrap around to the back on the left side. US does not show gallstones. It does show a lot of gas and much of the pancreas is obscured. Next step, HIDA scan, pancreatic enzymes and try simethicone. Could be EPI or atypical manifestation of GB problems. He continues on famotidine. ROV after HIDA scan. Orders: Orders NM hepatobiliary w pharm 12/21/22 R10.12 - Left upper quadrant pain, R17 - Unspecified jaundice Amylase 12/21/22 R10.12 - Left upper quadrant pain, R17 - Unspecified jaundice Lipase 12/21/22 R10.12 - Left upper quadrant pain, R17 - Unspecified jaundice Medications: New simethicone after meals 180 mg PO QID 120 caps 3RF 30 days Coding Level of Care Code Est Pt Level 3 (75071) Diagnoses Left upper quadrant abdominal pain R10.12 Elevated bilirubin R17
[2022-12-21 14:17] VITALS: BP 125/68; PULSE 79; BMI 28.1
== END 2022-12-21 15:38 | disposition home or self-care (01) ==
PROVIDERS: PCP Nurse Practitioner Family; Visit Provider Nurse Practitioner
DX: R10.12 Left upper quadrant pain (principal); R17 Unspecified jaundice
CPT/HCPCS: 99213

== ENCOUNTER → 2022-12-21 14:14 | Outpatient (BNVA) | payer BC, SELFPAY | PROVIDERS: PCP Nurse Practitioner Family; Visit Provider Nurse Practitioner ==

== ENCOUNTER 2022-12-21 15:09 | Outpatient (REF) | payer BC, SELFPAY ==
[2022-12-21 16:31] LABS: Amylase 56 U/L (28-100); Lipase 23 U/L (8-78)
== END 2022-12-21 15:10 | disposition home or self-care (01) ==
LOC: HO.HMGCLDS 15:09
PROVIDERS: PCP Nurse Practitioner Family; Visit Provider Nurse Practitioner
DX: R10.12 Left upper quadrant pain (principal); R17 Unspecified jaundice
CPT/HCPCS: 36415; 82150; 83690

== ENCOUNTER → 2023-01-10 07:44 | Outpatient (REF) | payer BC, SELFPAY ==
--- NOTE | ~2023-01-10 | NM_ITS ---
EXAMINATION: NM BILIARY TRACT CLINICAL INFORMATION: Upper quadrant pain with increased bilirubin. COMPARISON: Ultrasound abdomen 10/06/2022. TECHNIQUE: Following intravenous administration of 5 mCi of 90 9M technetium mebrofenin, imaging over the right upper quadrant was obtained up to 60 minutes. At 60 minutes 1.8 mcg of CCK was injected and further imaging was obtained up to 30 minutes. FINDINGS: There is normal hepatic uptake without any focal defects. The gallbladder is visualized by 9 minutes. CBD is visualized by 15 minutes. Small bowel is visualized by 17 minutes. Post-CCK gallbladder ejection fraction at 30 minutes is 45%. NM/NM hepatobiliary w pharm IMPRESSION: Normal hepatic uptake. Patent CBD and cystic duct. Post-CCK gallbladder ejection fraction is 45% at 30 minutes and is normal
== END ==
LOC: HO.NUCMED 07:44
PROVIDERS: PCP Nurse Practitioner Family; Visit Provider Nurse Practitioner
DX: R10.12 Left upper quadrant pain (principal); R17 Unspecified jaundice
CPT/HCPCS: 78227; A9537; J2805

== ENCOUNTER 2023-02-01 16:06 | Outpatient (AMB) | payer BC, SELFPAY ==
--- NOTE | 2023-02-01 16:07 | A.OFFVIS_ITS ---
Intake Vital Signs 02/01/23 16:08 Height 6 ft Weight 211 lb 10.3 oz BMI 28.7 BP 121/67 Blood Pressure Location Lt brachial Position Sitting Pulse 88 Intake Visit Reasons: Follow up Hida scan Intake Note: Patient returns to in office visit today in follow up of HIDA scan. CC: Patient reports he has been eating better. Still has abdominal pain occasional but he has been avoiding greasy foods and this seems to help. Concession Stand Attendant Required: No Allergies Penicillins [PENICILLINS] Allergy (Unknown, Verified 02/01/23 16:10) UNKNOWN HPI Follow up Hida scan HPI Details Assessment & Plan (1) Left upper quadrant abdominal pain: Code(s): R10.12 - Left upper quadrant pain (2) Elevated bilirubin: Code(s): R17 - Unspecified jaundice Plan He still has pain in the LUQ in a very discreet spot, always sore and he has to put a pillow over it to sleep. This is greatly worse with eating greasy foods but the nausea and increase in the pain and the nausea will happen a few hours later after eating. When he vomits there is only grease and no food. The pain at times will wrap around to the back on the left side. US does not show gallstones. It does show a lot of gas and much of the pancreas is obscured. Next step, HIDA scan, pancreatic enzymes and try simethicone. Could be EPI or atypical manifestation of GB problems. He continues on famotidine. ROV after HIDA scan. Orders: Orders NM hepatobiliary w pharm 12/21/22 R10.12 - Left uppe r quadrant pain, R 17 - Unspecified j aundice Amylase 12/21/22 R10.12 - Left uppe r quadrant pain, R 17 - Unspecified j aundice Lipase 12/21/22 R10.12 - Left uppe r quadrant pain, R 17 - Unspecified j aundice Medications: New simethicone aft er meals 180 mg PO QID 120 caps 3RF 30 days LABS: Laboratory Tests 12/21/22 15:12 Amylase 56 Lipase 23 HIDA SCAN 01/10/23 IMPRESSION: Normal hepatic uptake. Patent CBD and cystic duct. Post-CCK gallbladder ejection fraction is 45% at 30 minutes and is normal TODAY'S VISIT He never tried the simethicone, but when I explain it he is willing when he has the pain. For now he is just relieved that there is nothing serious wrong. We discussed other options for management going forward such is Creon but for now he is going to try avoiding foods that bother him including greasy foods and the Little Fina snacks that seem to set him off. ROV 3 mos. 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 Current occupational exposures/hazards: No Review of Systems Const Denies fatigue, Denies fever(s), Denies night sweats, Denies poor appetite and Denies weight loss ENT Reports Normal hearing present, Denies dental pain, Denies dysphagia, Denies hearing loss, Denies mouth pain, Denies odynophagia, Denies throat swelling, Denies tongue swelling and Reports other (Dentition adequate) Card Reports no additional complaints Resp Reports no additional complaints GI Reports abdominal pain, Denies melena, Reports bloating, Denies hematochezia, Denies constipation, Denies GI cramping, Denies dysphagia, Denies excessive flatus, Denies early satiety, Reports heartburn, Denies diarrhea, Denies nausea, Denies odynophagia, Denies vomiting and Denies hematemesis Skin/Breast Denies pruritus, Denies lesions, Denies rash and Denies jaundice Neuro Reports Normal hearing present and Denies Abnormal speech present Endo Denies fatigue Aller/Immun Denies throat swelling and Denies tongue swelling Physical Exam Vital Signs: Last Vital Signs Pulse 88 02/01/23 16:08 BP 121/67 02/01/23 16:08 BMI result Body Mass Index 28.7 Const General: cooperative, no acute distress, well developed and well groomed Nutritional Appearance: average body habitus and well nourished Orientation/consciousness: oriented to person, oriented to place and oriented to time Limitations: No language barrier HEENT Head: Yes normocephalic and Yes atraumatic Eyes General: appearance normal, both eyes and all related structures Pupils: Equal, round and reactive pupils present Neck Neck: Yes normal visual inspection and Yes no lymphadenopathy Thyroid: Thyroid normal Resp Effort & Inspection: normal respiratory effort and able to speak in complete sentences Auscultation: clear to auscultation bilaterally Cardio Rate: regular rate Rhythm: regular rhythm Heart sounds: Normal, physiologic split S2 sound present Peripheral pulses: radial pulses present and posterior tibial pulses present GI Inspection: No distended and No Abdominal panniculus present Palpation (GI): Soft to palpation, nontender, no guarding, not rigid and No hepatosplenomegaly present Percussion: Yes normal to percussion Auscultation: normal bowel sounds Rectal Exam - Male: Yes deferred Skin General skin exam: no rashes or lesions noted, turgor normal, skin not dry, no jaundice, No spider nevi and no striae Rashes: no rashes Nails: normal Neuro General: oriented to person, oriented to place and oriented to time Cranial nerves: Yes Equal, round and reactive pupils present and Yes Normal hearing present Speech: No Abnormal speech present Extrem General: Yes normal to inspection, No clubbing, No cyanosis and No edema Psych Appearance: grossly normal and well kempt Mental Status: mental status grossly normal Speech and movement: Normal speech and movement present Affect: normal affect Attitude: cooperative Thought process: Normal thought process present and not confabulating Thought content: Normal thought content present Insight: Fair insight present (Psych) Judgement: Fair judgement present (Psych) Results Reviewed Results Reviewed: Laboratory Tests 12/21/22 15:12 Amylase 56 Lipase 23 Laboratory Tests 09/24/21 09/10/22 09/10/22 09:35 15:21 15:21 Total Bilirubin 2.9 H GGT 31 AST 22 ALT 31 Alkaline Phosphatase 55 HIDA SCAN 01/10/23 IMPRESSION: Normal hepatic uptake. Patent CBD and cystic duct. Post-CCK gallbladder ejection fraction is 45% at 30 minutes and is normal Assessment & Plan Assessment & Plan (1) Left upper quadrant abdominal pain: Code(s): R10.12 - Left upper quadrant pain (2) GERD (gastroesophageal reflux disease): Code(s): K21.9 - Gastro-esophageal reflux disease without esophagitis (3) Elevated bilirubin: Code(s): R17 - Unspecified jaundice (4) LINDSEY (nonalcoholic steatohepatitis): Comment: BASELINE Laboratory Tests NORMALIZED AND WITH A NON ELEVATED GGT SHOULD BE FOLLOWED BY THE PRIMARY CARE PROVIDER 06/01/21 Estimated GFR > 60 Total Bilirubin 2.6 H Direct Bilirubin 0.8 H GGT 31 AST 23 ALT 40 Alkaline Phosphatase 62 09/24/21 Alpha Fetoprotein 3.7 LEISA Screen NEGATIVE Anti-Mitochondrial Ab NEGATIVE Anti-Smooth Muscle Ab <20 Hepatitis A IgM Ab Nonreactive Hep Bs Antigen Negative Hep Bs Antibody REACTIVE Hep B Core Total Ab Nonreactive Hepatitis C Ab (EIA) Nonreactive HIV 1&2 Ab/P24 Ag 4thGn Nonreactive ULTRASOUND OF THE ABDOMEN WITH ELASTOGRAPHY 10/13/21 (F0-F1) THE CURRENT LABS 09/24/2206/ [id number]:3515:[id number]:21 Total Bilirubin 2.9 H GGT 31 AST 22 ALT 31 Alkaline Phosphatase 55 ULTRASOUND OF THE ABDOMEN WITH ELASTOGRAPHY 10/13/21 (F0-F1) Shear wave liver elastography median stiffness is 1.66 m/s (reference: normal median stiffness is 1.3 m/s or less).Liver Stiffness? less than 1.7 m/s:? In the absence of other known clinical signs, rules out compensated advanced chronic liver disease. IMPRESSION: 1. Subcentimeter gallbladder polyps. The dominant follicle measuring 0.6 cm appear stable since 11/17/2010. 2. Otherwise sonographically unremarkable abdominal ultrasound. ? 3. Liver elastography:? In the absence of other known clinical signs, measurements rule out compensated advanced chronic liver disease.? If there are known clinical signs, further testing may be needed for confirmation. Code(s): K75.81 - Nonalcoholic steatohepatitis (LINDSEY) Plan He never tried the simethicone, but when I explain it he is willing when he has the pain. For now he is just relieved that there is nothing serious wrong. We discussed other options for management going forward such is Creon but for now he is going to try avoiding foods that bother him including greasy foods and the Little [employer]ina snacks that seem to set him off. HE CONTINUES ON HIS FAMOTIDINE WITH GOOD CONTROL OF HIS GERD. ROV 3 mos. Coding Level of Care Code Est Pt Level 3 (79747) Diagnoses Left upper quadrant abdominal pain R10.12 GERD (gastroesophageal reflux disease) K21.9 Elevated bilirubin R17 LINDSEY (nonalcoholic steatohepatitis) K75.81
[2023-02-01 16:08] VITALS: BP 121/67; PULSE 88; BMI 28.7
== END 2023-02-01 16:29 | disposition home or self-care (01) ==
PROVIDERS: PCP Nurse Practitioner Family; Visit Provider Nurse Practitioner
DX: R10.12 Left upper quadrant pain (principal); K21.9 Gastro-esophageal reflux disease without esophagitis; K75.81 Nonalcoholic steatohepatitis (NASH)
CPT/HCPCS: 99213

== ENCOUNTER → 2023-02-01 16:06 | Outpatient (BNVA) | payer BC, SELFPAY | PROVIDERS: PCP Nurse Practitioner Family; Visit Provider Nurse Practitioner ==

== ENCOUNTER 2023-06-16 15:00 | Outpatient (AMB) | payer BC, SELFPAY ==
[2023-06-16 14:50] VITALS: BP 132/70; PULSE 80; TEMP 36.4; O2SAT 96; BMI 28.6
--- NOTE | 2023-06-16 14:50 | MHC.OFFWIV ---
Intake Vital Signs 06/16/23 14:50 Height 6 ft Weight 211 lb 4 oz BMI 28.6 BP 132/70 Blood Pressure Location Lt brachial Position Sitting Pulse 80 Pulse Source Pulse Oximeter Temp 97.6 F Temp Source Oral Pulse Oximetry (%) 96 Oxygen Delivery Method Room Air Intake Visit Reasons: EP Hernia Intake Note: Pt is here today for possible hernia, pt states he noticed 2 days ago. Patient Tobacco Use Status: Former Tobacco user Allergies Penicillins [PENICILLINS] Allergy (Unknown, Verified 06/16/23 14:55) UNKNOWN Do you need a note to return to daycare/school/sports/work: No HPI HPI Comments History of Present Illness Details The patient presents to urgent care for evaluation of right inguinal pain. States that he has had pain there for 2 days and suspects he may have a hernia. He does do heavy lifting and works between 2 jobs. It is busy season so he has been working quite a bit and believes he may have done some lifting on Tuesday that created this problem. He reports some swelling to the area. 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 Current occupational exposures/hazards: No Physical Exam Vital Signs: Last Vital Signs Temp 97.6 F 06/16/23 14:50 Pulse 80 06/16/23 14:50 BP 132/70 06/16/23 14:50 Pulse Ox 96 06/16/23 14:50 Oxygen Delivery Method Room Air 06/16/23 14:50 BMI result Body Mass Index 28.6 Const General: healthy appearing and no acute distress Orientation/consciousness: patient oriented x3 Eyes Corneas: corneas normal Pupils: Equal, round and reactive pupils present Chest Chest palpation & inspection: no tenderness Resp Effort & Inspection: normal respiratory effort and able to speak in complete sentences GI Palpation (GI): nontender and Hernia present direct inguinal (small) on the right Neuro General: patient oriented x3 Cranial nerves: Yes Equal, round and reactive pupils present Psych Appearance: grossly normal Attitude: cooperative Assessment & Plan Assessment & Plan (1) Inguinal hernia: Code(s): K40.90 - Unilateral inguinal hernia, without obstruction or gangrene, not specified as recurrent Plan Patient has very small inguinal hernia. Will refer him to General surgery. Recommend weight belt and avoidance of heavy lifting. Ibuprofen and Tylenol for discomfort. Coding Level of Care Code Est Pt Level 3 (13527) Diagnoses Inguinal hernia K40.90
== END 2023-06-16 15:22 | disposition home or self-care (01) ==
PROVIDERS: PCP Nurse Practitioner Family; Visit Provider Emergency Medicine
DX: K40.90 Unilateral inguinal hernia, without obstruction or gangrene, not specified as recurrent (principal)
CPT/HCPCS: 99213

== ENCOUNTER 2023-07-05 09:22 | Outpatient (AMB) | payer BC, SELFPAY ==
--- NOTE | 2023-07-05 09:23 | A.OFFVIS_ITS ---
Vital Signs 07/05/23 09:30 Height 6 ft Weight 202 lb BMI 27.4 BP 116/63 Blood Pressure Location Lt brachial Position Sitting Pulse 69 Intake Visit Reasons: unilateral inguinal hernia Intake Note: Patient is seen in office for evaluation and treatment of an inguinal hernia. 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 He works for [employer] and is frequently required to perform heavy lifting. He reports the pain started gradually proximally 2 weeks ago. He was seen in the walk-in clinic and the possibility of a right inguinal hernia was raised. He denies a previous history hernia surgery. He is unable to feel a lump himself. He denies nausea, vomiting, fever or chills. His bowels have been normal as well. 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 Current occupational exposures/hazards: No Review of Systems Const All systems reviewed & are unremarkable except as noted in HPI and below Physical Exam Vital Signs: Last Vital Signs Pulse 69 07/05/23 09:30 BP 116/63 07/05/23 09:30 BMI result Body Mass Index 27.4 Const General: cooperative and no acute distress Nutritional Appearance: well nourished Orientation/consciousness: patient oriented x3 Limitations: no limitations HEENT Head: Yes normocephalic and Yes atraumatic Ears: hearing grossly normal bilaterally Resp Effort & Inspection: normal respiratory effort, no audible wheezes, no cough and no respiratory distress Cardio Jugular venous distension: no JVD GI Other: Examination in the standing position with Valsalva maneuvers does reveal a small pulsation in the internal ring which may be consistenth an early indirect right inguinal hernia. There is minimal tenderness to deep palpation in this location. No hernia noted on the left side. The right-sided hernia reduces spontaneously. Inspection: Yes normal to inspection Skin Other: Warm, dry, no rash Neuro General: patient oriented x3 Extrem General: Yes no clubbing, cyanosis or edema Assessment & Plan Assessment & Plan (1) Inguinal hernia: Code(s): K40.90 - Unilateral inguinal hernia, without obstruction or gangrene, not specified as recurrent Category: Medical Qualifiers: Obstruction and gangrene presence: without obstruction or gangrene Laterality: unilateral Recurrence: non-recurrent Qualified Code(s): K40.90 - Unilateral inguinal hernia, without obstruction or gangrene, not specified as recurrent Plan 32-year-old male patient presenting with complaints of pain in the right groin found to possibly have a very early right inguinal hernia which is quite small and felt only with Valsalva maneuvers. I recommended further evaluation with CT of the pelvis. He will be placed on light duty and will follow-up in approximately 1 month for repeat examination. He expressed understanding and agrees with the plan. Orders: Orders CT pelvis wo IV con Today K40.90 - Unilateral inguinal hernia, without obstruct ion or gangrene, not specified as recurrent Coding Level of Care Code New Pt Level 4 (94535) Diagnoses Non-recurrent unilateral inguinal hernia without obstruction or gangrene K40.90 Obstruction and gangrene presence: without obstruction or gangrene Laterality: unilateral Recurrence: non-recurrent
[2023-07-05 09:30] VITALS: BP 116/63; PULSE 69; BMI 27.4
== END 2023-07-05 09:46 | disposition home or self-care (01) ==
PROVIDERS: PCP Nurse Practitioner Family; Visit Provider Surgery
DX: K40.90 Unilateral inguinal hernia, without obstruction or gangrene, not specified as recurrent (principal)
CPT/HCPCS: 99204

== ENCOUNTER → 2023-07-05 09:22 | Outpatient (BNVA) | payer BC, SELFPAY | PROVIDERS: PCP Nurse Practitioner Family; Visit Provider Surgery ==

== ENCOUNTER 2023-08-02 13:04 | Outpatient (AMB) | payer BC, SELFPAY ==
--- NOTE | 2023-08-02 13:47 | A.OFFPC_ITS ---
Vital Signs 08/02/23 13:48 Height 6 ft Weight 208 lb BMI 28.2 BP 110/66 Blood Pressure Location Lt brachial Position Sitting Pulse 72 Pulse Source Pulse Oximeter Pulse Oximetry (%) 97 Oxygen Delivery Method Room Air Intake Visit Reasons: Annual PE overdue 04/2021 Intake Note: Patient here for physical exam. Allergies Penicillins [PENICILLINS] Allergy (Unknown, Verified 08/02/23 14:10) UNKNOWN Medication List - Last Reconciled 08/02/23 by YIFAN Tobias No Known Home Meds Tobacco use date assessed: 08/02/23 Dental Screening Dental Screen Date: 08/02/23 Did you have a dental visit in the last 12 months?: Yes Did you have a dental problem in the last 6 months where you did not have access to dental care?: No Was dental information given to patient?: Patient has dentist HPI Annual PE overdue 04/2021 HPI Details Pt is here for a PE. Will order labs. Pt has an inguinal hernia. He is following up with general surgery and a CT has been ordered. 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 1. Little interest or pleasure in doing things: not at all 2. Feeling down, depressed, or hopeless: not at all 3. Trouble falling or staying asleep, or sleeping too much: not at all 4. Feeling tired or having little energy: not at all 5. Poor appetite or overeating: not at all 6. Feeling bad about yourself - or that you are a failure or have let yourself or your family down: not at all 7. Trouble concentrating on things, such as reading the newspaper or watching television: not at all 8. Moving or speaking so slowly that other people could have noticed. Or the opposite - being so fidgety or restless that you have been moving around a lot more than usual: not at all 9. Thoughts that you would be better off or of hurting yourself in some way: not at all Total score: 0 Depression Screening Interpretation: Negative Depression Screening Done: Yes [id number] - PHQ-9 Billing: Yes Source: Developed by Drs. Bowen Murillo, Lisa Peguero, Marino Brown and colleagues, with an educational maicol from [employer]. Thrive Questionnaire Date Thrive assessed: 08/02/23 I am a: Patient What is your living situation today?: I have a steady place to live Within the past 12 months, did the food you bought not last and you didn't have the money to get more?: Never true Within the past 12 months, did you worry whether your food would run out before you got money to buy more?: Never true Do you have trouble paying for medicines?: No Do you have trouble getting transportation to medical appointments?: No Do you have trouble paying your heating and electricity bill?: No Do you have trouble taking care of your child, family member or friend?: No Do you have trouble with day-to-day activities such as bathing, preparing meals, shopping, managing finances, etc.?: No Are you currently unemployed and looking for a job?: No Are you interested in more education?: No Currently or been in a relationship where the following occur: I choose not to answer this question THRIVE Score: 0 AUDIT C Alcohol Use Questionnaire (AUDIT-C) 1. How often do you have a drink containing alcohol?: Never 3. How often do you have six or more drinks on one occasion?: Never Total Score: 0 Score Reviewed/Action Taken: No YODIT-7 AMB Questionnaire YODIT-7 Date YODIT - 7 assessed: 08/02/23 Feeling nervous, anxious, or on edge: 0 = Not at all Not being able to stop or control worryin = Not at all Worrying too much about different things: 0 = Not at all Trouble relaxin = Not at all Being so restless that it is hard to sit still: 0 = Not at all Becoming easily annoyed or irritable: 0 = Not at all Feeling afraid as if something awful might happen: 0 = Not at all Total YODIT-7 score (0-4 normal; 5-9 mild; 10-14 moderate; 15-21 severe): 0 Source: Developed by Drs. Bowen Murillo, Lisa Peguero, Marino Brown and colleagues, with an educational maicol from [employer]. YODIT-7 Assessment Billing YODIT-7 Assessment Tool: YODIT-7 Assessment 72270 Review of Systems Const Denies chills and Denies fever(s) Eyes Denies blurry vision ENT Denies vertigo, Denies dizziness and Denies sore throat Card Denies chest pain at rest, Denies chest pain with activity, Denies diaphoresis, Denies dyspnea and Denies dyspnea on exertion Resp Denies cough, Denies dyspnea, Denies dyspnea on exertion and Denies wheezing GI Denies abdominal pain, Denies melena, Denies hematochezia, Denies constipation, Denies diarrhea and Denies loose stools Denies hematuria Musc Denies numbness and Denies tingling Skin/Breast Denies lesions Neuro Denies vertigo, Denies dizziness, Denies numbness and Denies tingling Psych Denies anxiety, Denies depression, Denies homicidal ideation, Denies suicidal ideation and Denies other (substance abuse) Aller/Immun Denies wheezing Physical exam (Primary Care) Vital Signs: Last Vital Signs Pulse 72 08/02/23 13:48 BP 110/66 08/02/23 13:48 Pulse Ox 97 08/02/23 13:48 Oxygen Delivery Method Room Air 08/02/23 13:48 BMI result Body Mass Index 28.2 Tobacco/Smoking Status: Tobacco use Status Tobacco use date assessed 08/02/23 08/02/23 13:51 Patient Tobacco Use Status Former Tobacco user 08/02/23 13:48 e-Cigarette/Vaping Use Never Used 08/02/23 13:48 Depression Screening Interpretation: Negative Thrive Assessment: Date of Thrive Assessment Date Thrive assessed 04/30/21 08/02/23 13:48 Currently or been in a relationship where the following occur: I choose not to answer this question Const General: cooperative Nutritional Appearance: well nourished Orientation/consciousness: patient oriented x3 HENMT Head: Yes normal to inspection, Yes normocephalic and Yes atraumatic Ears: TM's normal bilaterally Eyes General: appearance normal, both eyes and all related structures Alignment and Position: alignment normal and position normal Neck Neck: Yes normal visual inspection and Yes no lymphadenopathy Thyroid: Thyroid normal Resp Effort & Inspection: normal respiratory effort Auscultation: clear to auscultation bilaterally Cardio Rate: regular rate Rhythm: regular rhythm Heart sounds: S1 normal heart sound present, S2 normal heart sound present and no murmurs GI Palpation (GI): Soft to palpation and nontender Auscultation: normal bowel sounds Male General Exam: Yes normal external exam Penis: normal penis Scrotum: scrotum normal, testes descended bilaterally and inguinal hernia (small inguinal) on the right Testes: no testicular mass Skin Rashes: no rashes Neuro General: patient oriented x3, moves all extremities, no focal motor deficits and deep tendon reflexes 2+ bilaterally Romberg Test: Negative Psych Appearance: grossly normal Mental Status: mental status grossly normal Speech and movement: Normal speech and movement present Affect: normal affect Attitude: cooperative Thought process: Normal thought process present Thought content: Normal thought content present Insight: Good insight present (Psych) Judgement: Good judgement present (Psych) Assessment and Plan Assessment & Plan (1) Physical exam: Code(s): Z00.00 - Encounter for general adult medical examination without abnormal findings Plan: Labs ordered (2) Inguinal hernia: Code(s): K40.90 - Unilateral inguinal hernia, without obstruction or gangrene, not specified as recurrent Qualifiers: Obstruction and gangrene presence: without obstruction or gangrene Laterality: unilateral Recurrence: non-recurrent Qualified Code(s): K40.90 - Unilateral inguinal hernia, without obstruction or gangrene, not specified as recurrent Plan: CT scan ordered, seeing Plan The patient agreed to the use of a biomedical manager for this encounter. Scribed for YIFAN Rudd by Jessi Us biomedical manager, on 08/02/2023 at 14:10 EST. Orders: Orders Comprehensive [place]. Panel Fast Today Z00.00 - Encounter for general adult medical examination without abnormal findings UA CC w/rflx Micro + Cult Today Z00.00 - Encounter for general adult medical examination without abnormal findings Complete Blood Count Auto Diff Today Z00.00 - Encounter for general adult medical examination without abnormal findings TSH reflex Free T4 Today Z00.00 - Encounter for general adult medical examination without abnormal findings Lipid Panel Today Z00.00 - Encounter for general adult medical examination without abnormal findings Coding Level of Care Code Est Pt Prev Care 18-39y(96845) Diagnoses Physical exam Z00.00 Non-recurrent unilateral inguinal hernia without obstruction or gangrene K40.90 Obstruction and gangrene presence: without obstruction or gangrene Laterality: unilateral Recurrence: non-recurrent Additional Codes YODIT-7 Assessment Billing - YODIT-7 Assessment Tool: YODIT-7 Assessment [id number] ([id number])
[2023-08-02 13:48] VITALS: BP 110/66; PULSE 72; O2SAT 97; BMI 28.2
== END 2023-08-02 14:18 | disposition home or self-care (01) ==
PROVIDERS: PCP Nurse Practitioner Family; Visit Provider Nurse Practitioner Family
DX: Z00.00 Encounter for general adult medical examination without abnormal findings (principal); K40.90 Unilateral inguinal hernia, without obstruction or gangrene, not specified as recurrent
CPT/HCPCS: 99395

== ENCOUNTER 2023-08-05 08:58 | Outpatient (AMB) | payer OTHER, SELFPAY ==
--- NOTE | 2023-08-05 09:02 | A.OFFVIS_ITS ---
Vital Signs 08/05/23 09:08 Height 6 ft Weight 203 lb BMI 27.5 BP 111/63 Blood Pressure Location Lt brachial Position Sitting Pulse 69 Intake Visit Reasons: 1 mth follow up unilateral inguinal hernia Intake Note: Patient is seen in office for one month follow up, following unilateral inguinal hernia. Pt c/o: no changes since last visit CT sched:08/17/23 Baked And Graphite Inspector Required: No Accompanied by: Self / Same As Patient Allergies Penicillins [PENICILLINS] Allergy (Unknown, Verified 08/05/23 09:09) UNKNOWN Medication List - Last Reconciled 08/05/23 by Ashish Brito MD No Known Home Meds HPI Comments Details: 32-year-old male patient presenting with pain in the right groin which developed while lifting heavy objects. Since his last visit he reports the pain is improving although he has been avoiding any heavy lifting. He denies feeling any lump in the groin and denies nausea, vomiting, fever or chills. He is scheduled for CT abdomen and pelvis in 1 week. 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 Current occupational exposures/hazards: No Cognitive needs: No Hearing needs: No Vision needs: No Review of Systems Const All systems reviewed & are unremarkable except as noted in HPI and below Physical Exam Vital Signs: Last Vital Signs Pulse 69 08/05/23 09:08 BP 111/63 08/05/23 09:08 BMI result Body Mass Index 27.5 Const General: cooperative and no acute distress Nutritional Appearance: well nourished Orientation/consciousness: patient oriented x3 Limitations: no limitations HEENT Head: Yes normocephalic and Yes atraumatic Ears: hearing grossly normal bilaterally Resp Effort & Inspection: normal respiratory effort, no audible wheezes, no cough and no respiratory distress Cardio Jugular venous distension: no JVD GI Other: Examination in the standing position with Valsalva maneuvers reveals a slight we akness in the right groin no definite hernia at this time. There is minimal tenderness to deep palpation. Difficult to tell at this time if day hernia is present. Exam is less tender than on previous examination. Inspection: Yes normal to inspection Skin Other: Warm, dry, no rash Neuro General: patient oriented x3 Extrem General: Yes no clubbing, cyanosis or edema Assessment & Plan Assessment & Plan (1) Inguinal hernia: Code(s): K40.90 - Unilateral inguinal hernia, without obstruction or gangrene, not specified as recurrent Category: Medical Qualifiers: Obstruction and gangrene presence: without obstruction or gangrene Laterality: unilateral Recurrence: non-recurrent Qualified Code(s): K40.90 - Unilateral inguinal hernia, without obstruction or gangrene, not specified as recurrent Plan Symptomatically the patient is much improved with decreased pain. Examination is not clearly show a right inguinal hernia but may indicate a slight weakness in the right groin. CT pelvis would be helpful in evaluating an occult hernia. In the meantime I recommended patient return to normal activity as symptomatically he is much improved. He will follow-up after the CT pelvis. Coding Level of Care Code Est Pt Level 3 (35930) Diagnoses Non-recurrent unilateral inguinal hernia without obstruction or gangrene K40.90 Obstruction and gangrene presence: without obstruction or gangrene Laterality: unilateral Recurrence: non-recurrent
[2023-08-05 09:08] VITALS: BP 111/63; PULSE 69; BMI 27.5
== END 2023-08-05 09:25 | disposition home or self-care (01) ==
PROVIDERS: PCP Nurse Practitioner Family; Visit Provider Surgery
DX: K40.90 Unilateral inguinal hernia, without obstruction or gangrene, not specified as recurrent (principal)
CPT/HCPCS: 99213

== ENCOUNTER → 2023-08-05 08:58 | Outpatient (BNVA) | payer BC, SELFPAY | PROVIDERS: PCP Nurse Practitioner Family; Visit Provider Surgery | DX: K40.90 Unilateral inguinal hernia, without obstruction or gangrene, not specified as recurrent (principal) | CPT/HCPCS: 99212 ==

== ENCOUNTER 2023-08-23 06:45 | Outpatient (REF) | payer BC, SELFPAY ==
[2023-08-23 11:04] LABS: MANUAL DIFF FLAG NO
[2023-08-23 11:16] LABS: Appearance Urine Clear; Color Urine Yellow; Glucose Urine UA Negative (Negative); Leukocyte Esterase Urine Negative (Negative); Nitrite Urine Negative (Negative); Specific Gravity - Urine >= 1.030 (1.005-1.025); Urine Blood Negative (Negative); Urine Ketones Negative (Negative); Urine Protein Negative (Neg-Trace)
[2023-08-23 11:20] LABS: Basophils Percent Auto 0.4 % (0-2); Eosinophils Absolute Auto 0.2 X10*3/uL (0.0-0.4); Eosinophils Percent Auto 2.3 % (0-4); Hematocrit 44.6 % (42.0-52.0); Hemoglobin 15.2 g/dl (14.0-18.0); Imm Gran Abs Auto 0.01 X10*3/uL (0.00-0.03); Imm Gran Pct Auto 0.1 % (0.0-0.4); Lymphocytes Percent Auto 37.7 % (20-40); Mean Corpuscular HGB Conc 34.1 g/dl (31.0-36.0); Mean Corpuscular Hemoglobin 30.2 pg (27.0-33.0); Mean Corpuscular Volume 88.5 fL (80.0-98.0); Mean Platelet Volume 9.4 fL (9.4-12.4); Monocytes Absolute Auto 0.7 X10*3/uL (0.1-1.2); Monocytes Percent Auto 8.6 % (2-11); Neutrophils Percent Auto 50.9 % (45-73); Platelet Count 268 X10*3/uL (160-400); Red Blood Count 5.04 X10*6/uL (4.60-5.80); Red Cell Distribution Width 12.5 % (11.0-16.0); White Blood Count 7.9 X10*3/uL (4.8-10.8)
[2023-08-23 12:00] LABS: Alanine Aminotransferase 25 U/L (0-40); Albumin Level 4.5 g/dL (3.5-5.0); Alkaline Phosphatase 52 U/L (39-117); Anion Gap 11 (12-20); Aspartate Amino Transferase 21 U/L (5-37); Bilirubin Total 1.8 mg/dL (0.0-1.0); Blood Urea Nitrogen 19 mg/dL (9-16); Calcium 9.7 mg/dL (8.4-10.2); Carbon Dioxide 29 mmol/L (22-29); Chloride 107 mmol/L (96-108); Cholesterol 167 mg/dL (<200); Estimated Glomerular Filt Rate > 60; Glucose Fasting 103 mg/dL (60-99); HDL Cholesterol 41 mg/dL (>40); LDL Cholesterol Calculated 103 mg/dL (<100); Sodium 143 mmol/L (135-145); TSH reflex Free T4 1.97 uIU/mL (0.32-4.0); Total Protein 7.3 g/dL (6.5-8.0); Triglycerides 117 mg/dL (<150)
== END 2023-08-23 06:46 | disposition home or self-care (01) ==
LOC: HO.HMGCLDS 06:45
PROVIDERS: PCP Nurse Practitioner Family; Visit Provider Nurse Practitioner Family
DX: Z00.00 Encounter for general adult medical examination without abnormal findings (principal)
CPT/HCPCS: 36415; 80053; 80061; 81003; 84443; 85025

== ENCOUNTER 2023-08-30 12:47 | Outpatient (AMB) | payer OTHER, BC, SELFPAY ==
--- NOTE | 2023-08-30 12:52 | MHC.OFFVIS ---
Vital Signs 08/30/23 12:53 Height 6 ft Weight 203 lb BMI 27.5 Intake Visit Reasons: results of CT on 08/16/23 @ [facility] Intake Note: This patient presents for a follow-up assessment for Ct-Scan results. Patient c/o; reports no complaints. Hospital Carrier Required: No Accompanied by: Self / Same As Patient Allergies Penicillins [PENICILLINS] Allergy (Unknown, Verified 08/30/23 12:55) UNKNOWN Medication List - Last Reconciled 08/30/23 by Ashish Brito MD No Known Home Meds HPI Comments Details: Edwin returns today to review the results of his recent CT pelvis without contrast performed on 08/16/2023 at [facility]. He still has occasional discomfort in the right groin and notes the right testicle to rise. He denies any palpable lump in the groin however. CT abdomen and pelvis revealed no bowel wall thickening or obstruction. The appendix is normal. Colonic diverticulosis without findings of diverticulitis. Prostate gland is normal size measuring 4.2 cm. No inguinal hernia is identified. There is no free fluid. Lymph nodes are not enlarged. Urinary bladder is unremarkable. Images were not available to review at the time of this visit. 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 Current occupational exposures/hazards: No Cognitive needs: No Hearing needs: No Vision needs: No Review of Systems Const All systems reviewed & are unremarkable except as noted in HPI and below Physical Exam Vital Signs: BMI result Body Mass Index 27.5 Const General: cooperative and no acute distress Nutritional Appearance: well nourished Orientation/consciousness: patient oriented x3 Limitations: no limitations HEENT Head: Yes normocephalic and Yes atraumatic Ears: hearing grossly normal bilaterally Resp Effort & Inspection: normal respiratory effort, no audible wheezes, no cough and no respiratory distress Cardio Jugular venous distension: no JVD GI Inspection: Yes normal to inspection Skin Other: Warm, dry, no rash Neuro General: patient oriented x3 Extrem General: Yes no clubbing, cyanosis or edema Assessment & Plan Assessment & Plan (1) Inguinal hernia: Code(s): K40.90 - Unilateral inguinal hernia, without obstruction or gangrene, not specified as recurrent Category: Medical Qualifiers: Obstruction and gangrene presence: without obstruction or gangrene Laterality: unilateral Recurrence: non-recurrent Qualified Code(s): K40.90 - Unilateral inguinal hernia, without obstruction or gangrene, not specified as recurrent Plan 32-year-old male patient returning to review the CT findings. He continues to have some discomfort in the groin as well as elevation of the right testicle. This may be the result of a cremasteric reflex. CT pelvis is negative for an inguinal hernia on either side. No surgical intervention is required at this time. He should follow up as needed. Coding Level of Care Code Est Pt Level 3 (96156) Diagnoses Non-recurrent unilateral inguinal hernia without obstruction or gangrene K40.90 Obstruction and gangrene presence: without obstruction or gangrene Laterality: unilateral Recurrence: non-recurrent
[2023-08-30 12:53] VITALS: BMI 27.5
== END 2023-08-30 13:00 | disposition home or self-care (01) ==
PROVIDERS: PCP Nurse Practitioner Family; Visit Provider Surgery
DX: K40.90 Unilateral inguinal hernia, without obstruction or gangrene, not specified as recurrent (principal)
CPT/HCPCS: 99213

== ENCOUNTER → 2023-08-30 12:47 | Outpatient (BNVA) | payer OTHER, BC, SELFPAY | PROVIDERS: PCP Nurse Practitioner Family; Visit Provider Surgery | DX: K40.90 Unilateral inguinal hernia, without obstruction or gangrene, not specified as recurrent (principal) | CPT/HCPCS: 99212 ==

== ENCOUNTER 2023-10-19 13:01 | Outpatient (AMB) | payer BC, SELFPAY ==
--- NOTE | 2023-10-19 13:04 | A.OFFVIS_ITS ---
Vital Signs 10/19/23 13:11 Height 6 ft Weight 208 lb 8.917 oz BMI 28.3 BP 105/66 Blood Pressure Location Lt brachial Position Sitting Pulse 85 Intake Visit Reasons: Follow up Meds Intake Note: Edwin presents to in office follow up of GERD. CC: Patient reports doing well and denies having any GI something. 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 Accompanied by: Self / Same As Patient Allergies Penicillins [PENICILLINS] Allergy (Unknown, Verified 10/19/23 13:15) UNKNOWN HPI HPI Follow up Meds: Details: Assessment & Plan (1) Left upper quadrant abdominal pain: Code(s): R10.12 - Left upper quadrant pain (2) GERD (gastroesophageal reflux disease): Code(s): K21.9 - Gastro-esophageal reflux disease without esophagitis (3) Elevated bilirubin: Code(s): R17 - Unspecified jaundice (4) LINDSEY (nonalcoholic steatohepatitis): Comment: BASELINE Laboratory Tests NORMALIZED AND WITH A NON ELEVATED GGT SHOULD BE FOLLOWED BY THE PRIMARY CARE PROVIDER 06/01/21 Estimated GFR > 60 Total Bilirubin 2.6 H Direct Bilirubin 0.8 H GGT 31 AST 23 ALT 40 Alkaline Phosphatase 62 09/24/21 Alpha Fetoprotein 3.7 BILLY Screen NEGATIVE Anti-Mitochondrial Ab NEGATIVE Anti-Smooth Muscle Ab <20 Hepatitis A IgM Ab Nonreactive Hep Bs Antigen Negative Hep Bs Antibody REACTIVE Hep B Core Total Ab Nonreactive Hepatitis C Ab (EIA) Nonreactive HIV 1&2 Ab/P24 Ag 4thGn Nonreactive ULTRASOUND OF THE ABDOMEN WITH ELASTOGRAPHY 10/13/21 (F0-F1) THE CURRENT LABS 09/24/2206/ 09:3515:2115:21 Total Bilirubin 2.9 H GGT 31 AST 22 ALT 31 Alkaline Phosphatase 55 ULTRASOUND OF THE ABDOMEN WITH ELASTOGRAPHY 10/13/21 (F0-F1) Shear wave liver elastography median stiffness is 1.66 m/s (reference: normal median stiffness is 1.3 m/s or less).Liver Stiffness? less than 1.7 m/s:? In the absence of other known clinical signs, rules out compensated advanced chronic liver disease. IMPRESSION: 1. Subcentimeter gallbladder polyps. The dominant follicle measuring 0.6 cm appear stable since 11/17/2010. 2. Otherwise sonographically unremarkable abdominal ultrasound. ? 3. Liver elastography:? In the absence of other known clinical signs, measurements rule out compensated advanced chronic liver disease.? If there are known clinical signs, further testing may be needed for confirmation. Code(s): K75.81 - Nonalcoholic steatohepatitis (LINDSEY) Plan He never tried the simethicone, but when I explain it he is willing when he has the pain. For now he is just relieved that there is nothing serious wrong. We discussed other options for management going forward such is Creon but for now he is going to try avoiding foods that bother him including greasy foods and the [place] snacks that seem to set him off. HE CONTINUES ON HIS FAMOTIDINE WITH GOOD CONTROL OF HIS GERD. ROV 3 mos.. Laboratory Tests 08/23/23 07:03 Plt Count 268 Estimated GFR > 60 Total Bilirubin 1.8 H AST 21 ALT 25 Alkaline Phosphatase 52 TSH 1.97 TODAY'S VISIT He continues to do well on his famotidine and simethicone. He is agreeable to repeating an US for liver suvellance. He has mostly billy elevated bilirubin that is likely [place], with normal transaminases and alk phos, and after this if all is the same he can be monitored by his PCP and returned to our survice if there are any concerns such as rising transaminases or alk phos. ROV 6 mos. 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 Current occupational exposures/hazards: No Cognitive needs: No Hearing needs: No Vision needs: No Review of Systems Const Denies fatigue, Denies fever(s), Denies night sweats, Denies poor appetite and Denies weight loss ENT Reports Normal hearing present, Denies dental pain, Denies dysphagia, Denies hearing loss, Denies mouth pain, Denies odynophagia, Denies throat swelling, Denies tongue swelling and Reports other (Dentition adequate) Card Reports no additional complaints Resp Reports no additional complaints GI Details: Denies abdominal pain, Denies melena, Reports bloating, Denies hematochezia, Denies constipation, Denies GI cramping, Denies dysphagia, Denies excessive flatus, Denies early satiety, Reports heartburn, Denies diarrhea, Denies nausea, Denies odynophagia, Denies vomiting and Denies hematemesis Skin/Breast Denies pruritus, Denies lesions, Denies rash and Denies jaundice Neuro Reports Normal hearing present and Denies Abnormal speech present Endo Denies fatigue Aller/Immun Denies throat swelling and Denies tongue swelling Physical Exam Vital Signs: Last Vital Signs Pulse 85 10/19/23 13:11 BP 105/66 10/19/23 13:11 BMI result Body Mass Index 28.3 Const General: cooperative, no acute distress, well developed and well groomed Nutritional Appearance: well nourished and overweight Orientation/consciousness: oriented to person, oriented to place and oriented to time Limitations: No language barrier HEENT Head: Yes normocephalic and Yes atraumatic Eyes General: appearance normal, both eyes and all related structures Pupils: Equal, round and reactive pupils present Neck Neck: Yes normal visual inspection and Yes no lymphadenopathy Thyroid: Thyroid normal Resp Effort & Inspection: normal respiratory effort and able to speak in complete sentences Auscultation: clear to auscultation bilaterally Cardio Rate: regular rate Rhythm: regular rhythm Heart sounds: Normal, physiologic split S2 sound present Peripheral pulses: radial pulses present and posterior tibial pulses present GI Inspection: No distended and No Abdominal panniculus present Palpation (GI): Soft to palpation, nontender, no guarding, not rigid and No hepatosplenomegaly present Percussion: Yes normal to percussion Auscultation: normal bowel sounds Rectal Exam - Male: Yes deferred Skin General skin exam: no rashes or lesions noted, turgor normal, skin not dry, no jaundice, No spider nevi and no striae Rashes: no rashes Nails: normal Neuro General: oriented to person, oriented to place and oriented to time Cranial nerves: Yes Equal, round and reactive pupils present and Yes Normal hearing present Speech: No Abnormal speech present Extrem General: Yes normal to inspection, No clubbing, No cyanosis and No edema Psych Appearance: grossly normal and well kempt Mental Status: mental status grossly normal Speech and movement: Normal speech and movement present Affect: normal affect Attitude: cooperative Thought process: Normal thought process present and not confabulating Thought content: Normal thought content present Insight: Fair insight present (Psych) Judgement: Fair judgement present (Psych) Assessment & Plan Assessment & Plan (1) GERD (gastroesophageal reflux disease): Code(s): K21.9 - Gastro-esophageal reflux disease without esophagitis Category: Medical (2) LINDSEY (nonalcoholic steatohepatitis): Comment: BASELINE Laboratory Tests NORMALIZED AND WITH A NON ELEVATED GGT SHOULD BE FOLLOWED BY THE PRIMARY CARE PROVIDER 06/01/21 Estimated GFR > 60 Total Bilirubin 2.6 H Direct Bilirubin 0.8 H GGT 31 AST 23 ALT 40 Alkaline Phosphatase 62 09/24/21 Alpha Fetoprotein 3.7 BILLY Screen NEGATIVE Anti-Mitochondrial Ab NEGATIVE Anti-Smooth Muscle Ab <20 Hepatitis A IgM Ab Nonreactive Hep Bs Antigen Negative Hep Bs Antibody REACTIVE Hep B Core Total Ab Nonreactive Hepatitis C Ab (EIA) Nonreactive HIV 1&2 Ab/P24 Ag 4thGn Nonreactive ULTRASOUND OF THE ABDOMEN WITH ELASTOGRAPHY 10/13/21 (F0-F1) THE CURRENT LABS 08/23/23 Plt Count 268 Estimated GFR > 60 Total Bilirubin 1.8 H AST 21 ALT 25 Alkaline Phosphatase 52 TSH 1.97 ULTRASOUND OF THE ABDOMEN WITH ELASTOGRAPHY 10/13/21 (F0-F1) Shear wave liver elastography median stiffness is 1.66 m/s (reference: normal median stiffness is 1.3 m/s or less).Liver Stiffness? less than 1.7 m/s:? In the absence of other known clinical signs, rules out compensated advanced chronic liver disease. IMPRESSION: 1. Subcentimeter gallbladder polyps. The dominant follicle measuring 0.6 cm appear stable since 11/17/2010. 2. Otherwise sonographically unremarkable abdominal ultrasound. ? 3. Liver elastography:? In the absence of other known clinical signs, measurements rule out compensated advanced chronic liver disease.? If there are known clinical signs, further testing may be needed for confirmation. Code(s): K75.81 - Nonalcoholic steatohepatitis (LINDSEY) Category: Medical Plan He continues to do well on his famotidine and simethicone. He is agreeable to repeating an US for liver suvellance. He has mostly billy elevated bilirubin that is likely [place], with normal transaminases and alk phos, and after this if all is the same he can be monitored by his PCP and returned to our survice if there are any concerns such as rising transaminases or alk phos. ROV 6 mos. Orders: Orders US abdomen complete Today K21.9 - Gastro-esophageal reflux disease without esophagitis, K75.81 - Nonalcoholic steatohepatitis (LINDSEY) Medications: New simethicone 180 mg PO TID PRN 90 caps 12RF abdominal distention Refilled famotidine (Pepcid) 40 mg PO BEDTIME 30 tabs 12RF K21.9 - Gastro-esophageal reflux disease without esophagitis Coding Level of Care Code Est Pt Level 3 (92784) Diagnoses GERD (gastroesophageal reflux disease) K21.9 LINDSEY (nonalcoholic steatohepatitis) K75.81
[2023-10-19 13:11] VITALS: BP 105/66; PULSE 85; BMI 28.3
== END 2023-10-19 13:53 | disposition home or self-care (01) ==
PROVIDERS: PCP Nurse Practitioner Family; Visit Provider Nurse Practitioner
DX: K21.9 Gastro-esophageal reflux disease without esophagitis (principal); K75.81 Nonalcoholic steatohepatitis (NASH)
CPT/HCPCS: 99213

== ENCOUNTER → 2023-10-19 13:01 | Outpatient (BNVA) | payer BC, OTHER, SELFPAY | PROVIDERS: PCP Nurse Practitioner Family; Visit Provider Nurse Practitioner ==

== ENCOUNTER 2023-12-29 08:10 | Outpatient (REF) | payer BC, SELFPAY | END 2023-12-29 08:11 | disposition home or self-care (01) | LOC: HO.HMGCX 08:10 | PROVIDERS: PCP Nurse Practitioner Family; Visit Provider Nurse Practitioner | DX: K75.81 Nonalcoholic steatohepatitis (NASH) (principal); K21.9 Gastro-esophageal reflux disease without esophagitis | CPT/HCPCS: 76700 ==

== ENCOUNTER 2024-08-29 12:59 | Outpatient (AMB) | payer BC, SELFPAY ==
--- NOTE | 2024-08-29 13:06 | A.OFFPC_ITS ---
Vital Signs 08/29/24 13:07 Height 6 ft Weight 202 lb BMI 27.4 BP 112/70 Blood Pressure Location Lt brachial Position Sitting Pulse 80 Pulse Source Pulse Oximeter Pulse Oximetry (%) 97 Oxygen Delivery Method Room Air Intake Visit Reasons: PE Allergies Penicillins (PENICILLINS) Allergy (Unknown, Verified 08/29/24 13:23) UNKNOWN Medication List - Last Reconciled 08/29/24 by YIFAN Tobias famotidine (Pepcid) 40 mg PO BEDTIME Tobacco use date assessed: 08/29/24 Dental Screening Dental Screen Date: 08/29/24 Did you have a dental visit in the last 12 months?: Yes Did you have a dental problem in the last 6 months where you did not have access to dental care?: No Was dental information given to patient?: Patient has dentist HPI PE HPI Details History of Present Illness The patient is a 33-year-old male presenting for a physical examination. Health Maintenance Social History Review of Systems - Cardiovascular: Denies chest pain. - Respiratory: Denies shortness of breat h. - Constitutional: Denies fevers and chil ls. - Gastrointestinal: Denies blood in stoo l, constipation, and diarrhea. - Psychiatric: Denies suicidal ideation and homicidal ideation. Physical Exam General: Cooperative, healthy appearing, comfortable, no acute distress and well developed Orientation: Patient oriented x3 Limitations: No limitations Head: Normal to inspection Ears: Hearing grossly normal bilaterally Nose: Normal external nose present Face and sinus: Normal facial exam Eyes: Appearance normal, both eyes and all related structures Neck: Normal visual inspection and Yes full ROM Respiratory: Normal respiratory effort and able to speak in complete sentences. Clear to auscultation bilaterally Cardiovascular: Regular rate and rhythm. Normal S1 and S2 GI: Normal to inspection. Soft to palpation and nontender : testicles without masses/lesions and no hernias appreciated Skin: No rashes or lesions noted Neuro: Patient oriented x3 Extremities: Normal to inspection Results Plan The patient is advised to complete fasting laboratory tests in the near future as part of routine health maintenance. Patient Instructions - Please schedule and complete your fast ing lab tests soon. 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 1. Little interest or pleasure in doing things: not at all 2. Feeling down, depressed, or hopeless: not at all 3. Trouble falling or staying asleep, or sleeping too much: not at all 4. Feeling tired or having little energy: not at all 5. Poor appetite or overeating: not at all 6. Feeling bad about yourself - or that you are a failure or have let yourself or your family down: not at all 7. Trouble concentrating on things, such as reading the newspaper or watching television: not at all 8. Moving or speaking so slowly that other people could have noticed. Or the opposite - being so fidgety or restless that you have been moving around a lot more than usual: not at all 9. Thoughts that you would be better off or of hurting yourself in some way: not at all Total score: 0 Depression Screening Interpretation: Negative Depression Screening Done: Yes 54841 - PHQ-9 Billing: Yes Source: Developed by Drs. Bowen Murillo, Lisa Peguero, Marino Brown and colleagues, with an educational maicol from [employer]. Thrive Questionnaire Date Thrive assessed: 08/29/24 I am a: Patient What is your living situation today?: I have a steady place to live Within the past 12 months, did the food you bought not last and you didn't have the money to get more?: Never true Within the past 12 months, did you worry whether your food would run out before you got money to buy more?: Never true Do you have trouble paying for medicines?: No Do you have trouble getting transportation to medical appointments?: No Do you have trouble paying your heating and electricity bill?: No Do you have trouble taking care of your child, family member or friend?: No Do you have trouble with day-to-day activities such as bathing, preparing meals, shopping, managing finances, etc.?: No Are you currently unemployed and looking for a job?: No Are you interested in more education?: No Please select the resources that you would like help with: None Currently or been in a relationship where the following occur: No concerns reported THRIVE Score: 0 AUDIT C Alcohol Use Questionnaire (AUDIT-C) 1. How often do you have a drink containing alcohol?: Never 3. How often do you have six or more drinks on one occasion?: Never Total Score: 0 Score Reviewed/Action Taken: Yes YODIT-7 AMB Questionnaire YODIT-7 Date YODIT - 7 assessed: 08/29/24 Feeling nervous, anxious, or on edge: 0 = Not at all Not being able to stop or control worryin = Not at all Worrying too much about different things: 0 = Not at all Trouble relaxin = Not at all Being so restless that it is hard to sit still: 0 = Not at all Becoming easily annoyed or irritable: 0 = Not at all Feeling afraid as if something awful might happen: 0 = Not at all Total YODIT-7 score (0-4 normal; 5-9 mild; 10-14 moderate; 15-21 severe): 0 Source: Developed by Drs. Bowen Murillo, Lisa Peguero, Marino Brown and colleagues, with an educational maicol from [employer]. YODIT-7 Assessment Billing YODIT-7 Assessment Tool: YODIT-7 Assessment 37229 Physical exam (Primary Care) Vital Signs: Last Vital Signs Pulse 80 08/29/24 13:07 BP 112/70 08/29/24 13:07 Pulse Ox 97 08/29/24 13:07 Oxygen Delivery Method Room Air 08/29/24 13:07 BMI result Body Mass Index 27.4 Tobacco/Smoking Status: Tobacco use Status Tobacco use date assessed 08/29/24 08/29/24 13:11 Patient Tobacco Use Status Former Tobacco user 08/29/24 13:11 e-Cigarette/Vaping Use Never Used 08/29/24 13:11 PHQ-9: PHQ-9 Score PHQ-9: Total score 0 08/29/24 13:11 Depression Screening Interpretation: Negative Thrive Assessment: Date of Thrive Assessment Date Thrive assessed 08/29/24 08/29/24 13:11 Currently or been in a relationship where the following occur: No concerns reported Coding Level of Care Code Est Pt Prev Care 18-39y(54625) Diagnoses Physical exam Z00.00 Additional Codes YODIT-7 Assessment Billing - YODIT-7 Assessment Tool: YODIT-7 Assessment 56353 ([id number]) PHQ-9 - 55185 - PHQ-9 Billing: Yes ([id number]) Assessment & Plan Assessment & Plan (1) Physical exam: Code(s): Z00.00 - Encounter for general adult medical examination without abnormal findings Category: Medical Plan . Orders: Orders Complete Blood Count Auto Diff Today Z00.00 - Encounter for general adult medical examination without abnormal findings Comprehensive [place]. Panel Fast Today Z00.00 - Encounter for general adult medical examination without abnormal findings TSH reflex Free T4 Today Z00.00 - Encounter for general adult medical examination without abnormal findings UA CC w/rflx Micro + Cult Today Z00.00 - Encounter for general adult medical examination without abnormal findings Lipid Panel Today Z00.00 - Encounter for general adult medical examination without abnormal findings
[2024-08-29 13:07] VITALS: BP 112/70; PULSE 80; O2SAT 97; BMI 27.4
--- OUTSIDE RECORDS SUMMARY | 2024-08-29 13:50 | XMS_ITS | Patient Health Record ---
Author Organization [facility] Address [address] [place] [address] Care Team Providers Care Electromedical Equipment Technician Name Role Phone Bonifacio Graham MD Primary Care Provider Unavail able Bowen Nieves Unavailable [phone] Allergies Allergen (clinical drug ingredient) Drug/Non Drug Allergy documented on EMR Reaction Allergy Type Onset Date Status Penicillin Unknown Drug Allergy Active Reason For Referral No Information Medications Medication SIG (Take, Route, Fr equency, Duration) Notes Start Date End Date Status Omeprazole 20 MG 1 capsule Orally Onc e a day as needed for acid reflux for 30 day(s) 12/16/2010 Active PriLOSEC 40mg Active Problems Problem Type SNOMED Code ICD Code Onset Dates Problem Status W/U Status Risk Notes Problem Weight decreased (533457663) Loss of weight (783.21) Active confirmed Problem Epigastric pain (14827417) Abdominal pain, epigastric (789.06) Active confirmed Plan Of Treatment Future Test Test Name Order Date UPPER GI ENDOSCOPY 11/13/2010 Insurance Providers Payer Name Payer Address Payer Phone Subscriber Number Group Number Insured Name Patient Relationship to Insured Coverage Start Date Coverage End Date [facility] [employer] [facility] [address] [address] [place], [place] [id number] MIRACLE DOYLE Self - patient is the insured Medical (General) History Medical History History ICD Code he denies any history of heart disease, diabetes, asthma, nor kidney disease Surgical History Surgery Date(Month/Year) as per previous records
--- OUTSIDE RECORDS SUMMARY | 2024-08-29 13:50 | XMS_ITS | Data Portability ---
Author Organization [facility] - [facility], [address] Address [address] [place] [address] Assessment No assessment recorded. Plan of Treatment Reminders Order Date Submit Date Provider Last Modified By Organization Details Last Modified Time Details Appointments None recorded. Lab None recorded. Referral None recorded. Procedures None recorded. Surgeries None recorded. Imaging XR, forearm, 2 view 2022 023 [email or web address] 9 [facility], [address] [place], [address], 18:49:40 Medication Orders naproxen 500 mg tablet 2022 023 [id number], [address] [place], [address], 18:44:32 Patient TargetsNo targets recorded. Patient InstructionsNo instructions recorded. Reason for Referral None Reported. Results Created Date Observation Date Name Description Value Unit Range Abnormal Flag Note LastModifiedBy Organization Detail LastModifiedTime 03/05/19 23 03/05/2022 XR, forea rm, 2 view No observ ation record ed. [email or web address] [facility] [address] [place], [address], 03/06/2022 17:13:14 Result Notes None recorded. Problems No Known Problems Medical Equipment None Reported. Allergies No known drug allergies Medications Name Sig Start Date Stop Date Status Note LastModified by Organization Details LastModified Time famotidine 40 mg tablet TAKE 1 TABLET BY MOUTH AT BEDTIME active Not Available Not Available No t Available naproxen 500 mg tablet TAKE 1 TABLET BY MOUTH TWICE A DAY WITH MEALS FOR 7 DAYS active Not Available Not Available No t Available Vitals Date Recorded Body height Body mass index (BMI) Body weight Body temperature Respiratory rate Heart rate Oxygen saturation Oxygen saturation in Arterial blood by Pulse oximetry Systolic And Diastolic Provider Name and Address Organization Details Last Updated DateTime 3 182.88 cm 28.5 kg/m2 37366.4 g 97.7 [degF] 18 /min 80 /min 98 % 98 % 116/73 mm[Hg] JOSY SALTER Santino PA - [facility] 3 17:45:29 Social History Question Answer Notes LastModified by [employer] Details LastModified Time Tobacco Smoking Status Former Smoker JOSY JEFFERYMIGUEL weber PA - [facility] 03/05/2022 17:44:24 What Is Your Water Source? City Information not available 03/05/2022 What Is Your Heat Source? Other Information not available 03/05/2022 Have You Had Direct Contact, Or Contact During Intimacy, With Monkeypox Rash, Scabs, Or Body Fluids From A Person With Monkeypox? No Information not available 03/05/2022 Have You Recently Traveled Abroad? No Information not available 03/05/2022 Sex: Unknown Functional Status Question Answer Note LastModified by [employer] Details LastModified Time Do you use any illicit or recreational drugs? No Information not available 03/05/2022 Do you or have you ever used any other forms of tobacco or nicotine? No Information not available 03/05/2022 What is your level of alcohol consumption? None Information not available 03/05/2022 Mental Status None recorded. Family History Relationship Description Onset Age of this Age Resolved Age Notes LastModified by Organization Details LastModified Time Father No current problems or disability Not available 17:44:14 Mother No current problems or disability Not available 17:44:14 Medical History No medical history recorded. Past Encounters Encounter ID Performer Location Encounter Start Date Encounter Closed Date Diagnosis/Indication Diagnosis SNOMED-CT Code Diagnosis ICD10 Code Diagnosis Note [id number] [facility] [address] [place] [address] 10/19/2018 13:35:28 10/19/2018 13:56:36 [id number] Kal De Souza, [address] [place] [address] 03/05/2022 16:56:07 03/05/2022 18:49:40 Pain in right arm [id number] M79.601 XRAY - no fracture recommend trial of NSAIDSICEc ompression recommend that he go to Ortho walk in on Tuesday prn no improvemen t Health Concerns Section Related Observation LastModified by Organization Detai ls LastModified Time None Recorded Concern Status LastModified by Organization Details LastModified Time None Recorded Advance Directives Directive None Recorded Payers Insurance Date Sequence Insurance Name Policy Number Policy Villasenor Covered Member ID Villasenor Member ID Guarantor Name 03/05/2022 1 TIARRA (PPO) [id number] Edwin Mensah [id number] Edwin Mensah Notes Date Note Type Note Provider Name and Address Organization Details Recorded Time 03/05/2022 text/html R forearm pain x 3 dno known traumaworks lifting heavy things? if he hurt it at work+ swelling of dorsal surface R forearm+ some bruisingdecreased movement/strengthno numbness/tinglingno rash RHD Kal De Souza, DO [address] [place], [address], PA - [facility] 03/05/2022 18:49:03
== END 2024-08-29 13:27 | disposition home or self-care (01) ==
LOC: HO.HMCC 13:00
PROVIDERS: PCP Nurse Practitioner Family; Visit Provider Nurse Practitioner Family
DX: Z00.00 Encounter for general adult medical examination without abnormal findings (principal)

== ENCOUNTER → 2024-08-29 12:59 | Outpatient (BNVA) | payer BC, OTHER, SELFPAY | PROVIDERS: PCP Nurse Practitioner Family; Visit Provider Nurse Practitioner Family | DX: Z00.00 Encounter for general adult medical examination without abnormal findings (principal) | CPT/HCPCS: 96127 ==

== ENCOUNTER 2024-11-28 16:20 | Outpatient (AMB) | payer OTHER, SELFPAY ==
--- NOTE | 2024-11-28 16:23 | MHC.OFFVIS ---
Vital Signs 11/28/24 16:28 Height 6 ft Weight 204 lb BMI 27.7 BP 98/58 L Blood Pressure Location Rt brachial Position Sitting Pulse 78 Intake Visit Reasons: Follow up GERD Intake Note: Patient in office today in follow up of GERD. CC: Patient reports doing well and denies having any new GI concerns. Allergies Penicillins (PENICILLINS) Allergy (Unknown, Verified 11/28/24 16:28) UNKNOWN HPI HPI Follow up GERD: Details: Assessment & Plan (1) GERD (gastroesophageal reflux disease): Code(s): K21.9 - Gastro-esophageal reflux disease without esophagitis Category: Medical (2) LINDSEY (nonalcoholic steatohepatitis): Comment: BASELINE Laboratory Tests NORMALIZED AND WITH A NON ELEVATED GGT SHOULD BE FOLLOWED BY THE PRIMARY CARE PROVIDER 06/01/21 Estimated GFR > 60 Total Bilirubin 2.6 H Direct Bilirubin 0.8 H GGT 31 AST 23 ALT 40 Alkaline Phosphatase 62 09/24/21 Alpha Fetoprotein 3.7 BILLY Screen NEGATIVE Anti-Mitochondrial Ab NEGATIVE Anti-Smooth Muscle Ab <20 Hepatitis A IgM Ab Nonreactive Hep Bs Antigen Negative Hep Bs Antibody REACTIVE Hep B Core Total Ab Nonreactive Hepatitis C Ab (EIA) Nonreactive HIV 1&2 Ab/P24 Ag 4thGn Nonreactive ULTRASOUND OF THE ABDOMEN WITH ELASTOGRAPHY 10/13/21 (F0-F1) THE CURRENT LABS 08/23/23 Plt Count 268 Estimated GFR > 60 Total Bilirubin 1.8 H AST 21 ALT 25 Alkaline Phosphatase 52 TSH 1.97 ULTRASOUND OF THE ABDOMEN WITH ELASTOGRAPHY 10/13/21 (F0-F1) Shear wave liver elastography median stiffness is 1.66 m/s (reference: normal median stiffness is 1.3 m/s or less).Liver Stiffness? less than 1.7 m/s:? In the absence of other known clinical signs, rules out compensated advanced chronic liver disease. IMPRESSION: 1. Subcentimeter gallbladder polyps. The dominant follicle measuring 0.6 cm appear stable since 11/17/2010. 2. Otherwise sonographically unremarkable abdominal ultrasound. ? 3. Liver elastography:? In the absence of other known clinical signs, measurements rule out compensated advanced chronic liver disease.? If there are known clinical signs, further testing may be needed for confirmation. Code(s): K75.81 - Nonalcoholic steatohepatitis (LINDSEY) Category: Medical Plan He continues to do well on his famotidine and simethicone. He is agreeable to repeating an US for liver suvellance. He has mostly billy elevated bilirubin that is likely [place], with normal transaminases and alk phos, and after this if all is the same he can be monitored by his PCP and returned to our survice if there are any concerns such as rising transaminases or alk phos. ROV 6 mos. Orders: Orders US abdomen complete Today K21.9 - Gastro-esophageal reflux disease without esophagitis, K75.81 - Nonalcoholic steatohepatitis (LINDESY) Medications: New simethicone 180 mg PO TID PRN 90 caps 12RF abdominal distention Refilled famotidine (Pepcid) 40 mg PO BEDTIME 30 tabs 12RF K21.9 - Gastro-esophageal reflux disease without esophagitis ULTRASOUND OF THE ABDOMEN 12/29/2023 FINDINGS: PANCREAS: Normal. ABDOMINAL AORTA: The proximal, mid, and distal segments are normal in caliber. INFERIOR VENA CAVA: Visualized portions are normal. LIVER: Normal. The liver is normal in size. The liver contour is normal. Parenchymal echogenicity is normal. No focal hepatic lesion. There is no intrahepatic biliary duct dilatation seen. GALLBLADDER: Normal. The gallbladder is physiologically distended without evidence of stones, sludge, polyps, wall thickening or pericholecystic fluid. COMMON BILE DUCT: Normal in caliber measuring 0.30 cm in diameter. RIGHT KIDNEY: Normal. No hydronephrosis. No renal calculi or focal parenchymal lesions. The kidney measures 11.8 cm in maximum dimension. LEFT KIDNEY: Normal. No hydronephrosis. No renal calculi or focal parenchymal lesions. The kidney measures 11.6 cm in maximum dimension. SPLEEN: Normal. The spleen measures 12.3 cm in maximum dimension. FREE FLUID: None. US/US abdomen complete IMPRESSION: Normal abdominal ultrasound. 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 Current occupational exposures/hazards: No Cognitive needs: No Hearing needs: No Vision needs: No Review of Systems Const Denies fatigue, Denies fever(s), Denies night sweats, Denies poor appetite and Denies weight loss ENT Reports Normal hearing present, Denies dental pain, Denies dysphagia, Denies hearing loss, Denies mouth pain, Denies odynophagia, Denies throat swelling, Denies tongue swelling and Reports other (Dentition adequate) Card Reports no additional complaints Resp Reports no additional complaints GI Details: Denies abdominal pain, Denies melena, Denies bloating, Denies hematochezia, Denies constipation, Denies GI cramping, Denies dysphagia, Denies excessive flatus, Denies early satiety, Reports heartburn, Denies diarrhea, Denies nausea, Denies odynophagia, Denies vomiting and Denies hematemesis Skin/Breast Denies pruritus, Denies lesions, Denies rash and Denies jaundice Neuro Reports Normal hearing present and Denies Abnormal speech present Endo Denies fatigue Aller/Immun Denies throat swelling and Denies tongue swelling Physical Exam Vital Signs: Last Vital Signs Pulse 78 11/28/24 16:28 BP 98/58 L 11/28/24 16:28 BMI result Body Mass Index 27.7 Const General: cooperative, no acute distress, well developed and well groomed Nutritional Appearance: average body habitus and well nourished Orientation/consciousness: oriented to person, oriented to place and oriented to time Limitations: No language barrier HEENT Head: Yes normocephalic and Yes atraumatic Eyes General: appearance normal, both eyes and all related structures Pupils: Equal, round and reactive pupils present Neck Neck: Yes normal visual inspection and Yes no lymphadenopathy Thyroid: Thyroid normal Resp Effort & Inspection: normal respiratory effort and able to speak in complete sentences Auscultation: clear to auscultation bilaterally Cardio Rate: regular rate Rhythm: regular rhythm Heart sounds: Normal, physiologic split S2 sound present Peripheral pulses: radial pulses present and posterior tibial pulses present GI Inspection: No distended and No Abdominal panniculus present Palpation (GI): Soft to palpation, nontender, no guarding, not rigid and No hepatosplenomegaly present Percussion: Yes normal to percussion Auscultation: normal bowel sounds Rectal Exam - Male: Yes deferred Skin General skin exam: no rashes or lesions noted, turgor normal, skin not dry, no jaundice, No spider nevi and no striae Rashes: no rashes Nails: normal Neuro General: oriented to person, oriented to place and oriented to time Cranial nerves: Yes Equal, round and reactive pupils present and Yes Normal hearing present Speech: No Abnormal speech present Extrem General: Yes normal to inspection, No clubbing, No cyanosis and No edema Psych Appearance: grossly normal and well kempt Mental Status: mental status grossly normal Speech and movement: Normal speech and movement present Affect: normal affect Attitude: cooperative Thought process: Normal thought process present and not confabulating Thought content: Normal thought content present Insight: Good insight present (Psych) Judgement: Good judgement present (Psych) Assessment & Plan Assessment & Plan (1) GERD (gastroesophageal reflux disease): Code(s): K21.9 - Gastro-esophageal reflux disease without esophagitis Category: Medical (2) LINDSEY (nonalcoholic steatohepatitis): Comment: BASELINE Laboratory Tests NORMALIZED AND WITH A NON ELEVATED GGT SHOULD BE FOLLOWED BY THE PRIMARY CARE PROVIDER 06/01/21 Estimated GFR > 60 Total Bilirubin 2.6 H Direct Bilirubin 0.8 H GGT 31 AST 23 ALT 40 Alkaline Phosphatase 62 09/24/21 Alpha Fetoprotein 3.7 BILLY Screen NEGATIVE Anti-Mitochondrial Ab NEGATIVE Anti-Smooth Muscle Ab <20 Hepatitis A IgM Ab Nonreactive Hep Bs Antigen Negative Hep Bs Antibody REACTIVE Hep B Core Total Ab Nonreactive Hepatitis C Ab (EIA) Nonreactive HIV 1&2 Ab/P24 Ag 4thGn Nonreactive ULTRASOUND OF THE ABDOMEN WITH ELASTOGRAPHY 10/13/21 (F0-F1) THE CURRENT LABS 08/23/23 Plt Count 268 Estimated GFR > 60 Total Bilirubin 1.8 H AST 21 ALT 25 Alkaline Phosphatase 52 TSH 1.97 ULTRASOUND OF THE ABDOMEN WITH ELASTOGRAPHY 10/13/21 (F0-F1) Shear wave liver elastography median stiffness is 1.66 m/s (reference: normal median stiffness is 1.3 m/s or less).Liver Stiffness? less than 1.7 m/s:? In the absence of other known clinical signs, rules out compensated advanced chronic liver disease. IMPRESSION: 1. Subcentimeter gallbladder polyps. The dominant follicle measuring 0.6 cm appear stable since 11/17/2010. 2. Otherwise sonographically unremarkable abdominal ultrasound. ? 3. Liver elastography:? In the absence of other known clinical signs, measurements rule out compensated advanced chronic liver disease.? If there are known clinical signs, further testing may be needed for confirmation. Code(s): K75.81 - Nonalcoholic steatohepatitis (LINDSEY) Category: Medical Plan He continues to do well on his famotidine and simethicone. - The patient is a 34-year-old male presenting for follow-up on GERD and liver function evaluation. - He currently manages GERD with daily famotidine. - History of fatty liver disease, with recent ultrasound indicating no current liver issues., since his transaminases have been normal I do not think he needs to follow with our service and this can be followed by his primary care provider. He can be returned to our service should his transaminases become more than twice the upper limit of normal. - Previously consumed alcohol daily but stopped five years ago. He is again educated that avoiding alcohol on a daily basis, try not to gain weight and should he become diabetic controlling his sugar are the important factors to controlling his future liver health. - Seeks guidance on necessity of continued liver monitoring and follow-up visits. He certainly can continue to follow with us yearly for his GERD prescription but he could also opt to have his primary care provider fill it since he has been extremely stable. For now he will do a 1 year follow-up and if he and his primary decide to go forward with the GERD monitoring he will cancel that appointment. Medications: Refilled famotidine (Pepcid) 40 mg PO BEDTIME 30 tabs 12RF K21.9 - Gastro-esophageal reflux disease without esophagitis Coding Level of Care Code Est Pt Level 3 (34305) Diagnoses GERD (gastroesophageal reflux disease) K21.9 LINDSEY (nonalcoholic steatohepatitis) K75.81
[2024-11-28 16:28] VITALS: BP 98/58; PULSE 78; BMI 27.7
== END 2024-11-28 17:00 | disposition home or self-care (01) ==
LOC: HO.HGI 16:21
PROVIDERS: PCP Nurse Practitioner Family; Visit Provider Nurse Practitioner
DX: K21.9 Gastro-esophageal reflux disease without esophagitis (principal); K75.81 Nonalcoholic steatohepatitis (NASH)
CPT/HCPCS: 99213

== ENCOUNTER → 2024-11-28 16:20 | Outpatient (BNVA) | payer OTHER, SELFPAY | PROVIDERS: PCP Nurse Practitioner Family; Visit Provider Nurse Practitioner | DX: K21.9 Gastro-esophageal reflux disease without esophagitis (principal); K75.81 Nonalcoholic steatohepatitis (NASH) | CPT/HCPCS: 99212 ==